=== PATIENT | female | born 1940 | race Caucasian/White ===

== ENCOUNTER 2017-03-28 18:23 | Emergency (ER) | payer MEDICARE, MEDICAID, SELFPAY | END 2017-03-28 21:47 | disposition home or self-care (01) | PROVIDERS: Emergency Provider Emergency Medicine; Family Provider Nurse Practitioner Family; Visit Provider Emergency Medicine | DX: K57.91 Diverticulosis of intestine, part unspecified, without perforation or abscess with bleeding (principal) | CPT/HCPCS: 74176; 80053; 81001; 82272; 85025; 87086; 87088; 87186; 99282; G0328 ==

== ENCOUNTER 2017-05-30 08:23 | Day surgery (SDC) | payer MEDICARE, MEDICAID, SELFPAY ==
[2017-05-30] VITALS (7 sets, daily range): BP systolic 95–142; BP diastolic 60–86; PULSE 71–88; RESP 18; TEMP 36.5–36.7; O2SAT 92–98; BMI 23.3
--- NOTE | 2017-05-30 09:49 | HMH.ANESCL ---
[facility] Anesthesia Checklist - Patient Identification Patient Identification: Arm Band, Family, Verbal (Name & ) - Structural Data Admitted From: Home Planned Operative Procedure/s: egd/colon Consent for Planned Operative Procedure(s) Verified: Yes Verified Documents: Surgical Consent - NPO Status Verified Time NPO: 00:00 - Additional verifications Patient : No Anesthesia Reactions: No Hx Blood Transfusions: No Cephalosporin Allergy: No Previous Colonoscopy: No - Cardiovascular Assessment Heart Sounds: S1 & S2 Pulse Strength: Baseline Pulse Rhythm: Regular Peripheral Edema: No - Airway Assessment C-Spine Mobility Assessed: Yes TMJ Mobility Assessed: Yes Dentition: Edentulous - Neurological Assessment Level of Consciousness: Awake, Alert, Appropriate Hx Seizures: No Numbness or tingling in extremities: No - Anesthesia Plan Anesthesia Risk discussed: Yes ASA Class: III Anesthesia Type: MAC [facility] Anesthesia HX I have reviewed the patient's past medical history: Yes Medical History: Reports:: Aneurysm (aortic), Hypertension Denies:: Diabetes Mellitus Type 1, Diabetes Mellitus Type 2, Internal Pacemaker, Seizures Other Surgeries: Yes: Other (lap choly). No: Pacemaker
--- NOTE | 2017-05-30 10:51 | HMH.PROC ---
[facility] Procedure Note Procedure Note:: Colonoscopy Procedure Report: Colonoscopy with cold snare, submucosal injection, snare cautery and Endo Clip placements Endoscopist: Kiet Prado II, MD Referring physician: Shahana DENISE Date of Procedure: May 30, 2017 Equipment: Olympus 180 variable stiffness pediatric colonoscope Sedation: MAC sedation Indication: Mrs. Wallace is a 76-year-old female who presented and March (March 28, 2017) to the [facility] emergency department with hematochezia/bright red rectal bleeding. At that time a CAT scan was performed and showed diverticulosis and a large hiatal hernia. Her hemoglobin and hematocrit were 15.4 and 46.2. The patient does report hard bowel movements with constipation. She reports no abdominal pain, weight loss or family history of colon cancer. Her last colonoscopy ([address] Gerard Pardo M.D.) revealed diverticulosis. Procedure: Prior to the procedure, a history and physical exam was performed, and patient's medications and allergies were reviewed. The risks, benefits and alternatives of the sedation and procedure were discussed with the patient. All questions were answered and informed consent was obtained. The patient was brought to the procedure room. Patient identification and proposed procedure were verified by the physician and the nurse. The patient was placed in a left lateral decubitus position and the scope was passed under direct vision. Throughout the procedure, the patient's blood pressure, pulse, and oxygen saturations were monitored continuously. The colonoscopy was accomplished without difficulty. The patient tolerated the procedure well. Findings: On digital rectal examination there was normal rectal tone. There were no external hemorrhoids. The colonoscope was introduced through the anal canal to the rectum and advanced to the cecum. The ileocecal valve and appendiceal orifice were identified. The scope was advanced a short distance into the ileum which appeared grossly normal. The scope was then withdrawn into the colon. There was a very large granular laterally spreading sessile advanced adenoma of the cecum (30-35 mm width polyp) that was injected with Eleview submucosally and then saline and this was removed in piecemeal via snare cautery. The post polypectomy site was clipped using 2 endoclips to close the site. There were 4 additional colon polyps identified in the descending and sigmoid. These ranged in size from 5-8 mm and were all removed via cold snare polypectomy. There were at least 2 or 3 additional polyps that were not removed because of retrieval of all the fragments of largest polyp specimen and a retrieval snare basket was used. There were scattered diverticuli throughout the descending and sigmoid colon (LEFT colon). The rectum itself was normal. Upon retroflexion within the rectum there were grade 2-3 internal hemorrhoids. Impression: 1. Large (30-35 mm) advanced adenoma (granular laterally spreading sessile) cecal polyp 2. 4 additional colonic polyps 3. Extensive left-sided diverticulosis 4. Grade 2-3 internal hemorrhoids Plan: I will follow up the polyp histology. Based upon the size and advanced nature of this polyp, the patient should return within 3-6 months to examine the site to ensure that there is no residual or recurrence. The patient does have some diminutive adenomas that will need to be removed. I would consider hemorrhoid band ligation at that time. I will discuss the findings with the patient and family.
--- NOTE | 2017-05-30 10:58 | P.PCN_ITS ---
[facility] Procedure Note Procedure Note:: Colonoscopy Procedure Report: Colonoscopy with cold snare, submucosal injection , snare cautery and Endo Clip placements Endoscopist: Kiet Prado II, MD Referring physician: Shahana DENISE Date of Procedure: May 30, 2017 Equipment: Olympus 180 variable stiffness pediatric colonoscope Sedation: MAC sedation Indication: Mrs. Wallace is a 76-year-old female who presented and March ( March 28, 2017) to the [facility] emergency department with hematochezia/bright red rectal bleeding. At that time a CAT scan was performed and showed diverticulosis and a large hiatal hernia. Her hemoglobin and hematocrit were 15.4 and 46.2. The patient does report hard bowel movements with constipation. She reports no abdominal pain, weight loss or family history of colon cancer. Her last colonoscopy ([address] Gerard Pardo M.D.) revealed diverticulosis. Procedure: Prior to the procedure, a history and physical exam was performed, and patient' s medications and allergies were reviewed. The risks, benefits and alternatives of the sedation and procedure were discussed with the patient. All questions were answered and informed consent was obtained. The patient was brought to the procedure room. Patient identification and proposed procedure were verified by the physician and the nurse. The patient was placed in a left lateral decubitus position and the scope was passed under direct vision. Throughout the procedure, the patient's blood pressure, pulse, and oxygen saturations were monitored continuously. The colonoscopy was accomplished without difficulty. The patient tolerated the procedure well. Findings: On digital rectal examination there was normal rectal tone. There were no external hemorrhoids. The colonoscope was introduced through the anal canal to the rectum and advanced to the cecum. The ileocecal valve and appendiceal orifice were identified. The scope was advanced a short distance into the ileum which appeared grossly normal. The scope was then withdrawn into the colon. There was a very large granular laterally spreading sessile advanced adenoma of the cecum (30-35 mm width polyp) that was injected with Eleview submucosally and then saline and this was removed in piecemeal via snare cautery. The post polypectomy site was clipped using 2 endoclips to close the site. There were 4 additional colon polyps identified in the descending and sigmoid. These ranged in size from 5-8 mm and were all removed via cold snare polypectomy. There were at least 2 or 3 additional polyps that were not removed because of retrieval of all the fragments of largest polyp specimen and a retrieval snare basket was used. There were scattered diverticuli throughout the descending and sigmoid colon (LEFT colon). The rectum itself was normal. Upon retroflexion within the rectum there were grade 2 -3 internal hemorrhoids. Impression: 1. Large (30-35 mm) advanced adenoma (granular laterally spreading sessile) cecal polyp 2. 4 additional colonic polyps 3. Extensive left-sided diverticulosis 4. Grade 2-3 internal hemorrhoids Plan: I will follow up the polyp histology. Based upon the size and advanced nature of this polyp, the patient should return within 3-6 months to examine the site to ensure that there is no residual or recurrence. The patient does have some diminutive adenomas that will need to be removed. I would consider hemorrhoid band ligation at that time. I will discuss the findings with the patient and family.
== END 2017-05-30 11:55 | disposition home or self-care (01) ==
LOC: OUTP 08:26
PROVIDERS: Family Provider Nurse Practitioner Family; PCP Family Medicine; Visit Provider Internal Medicine Gastroenterology
PROC: 0DJD8ZZ Inspection of Lower Intestinal Tract, Via Natural or Artificial Opening Endoscopic (ICD-10-PCS; CPT 45378; principal; 2017-05-30 10:00)
DX: D12.0 Benign neoplasm of cecum (principal); K63.5 Polyp of colon; K57.30 Diverticulosis of large intestine without perforation or abscess without bleeding; K64.1 Second degree hemorrhoids; K64.2 Third degree hemorrhoids
CPT/HCPCS: 45381; 45384; 88305

== ENCOUNTER 2018-02-01 16:34 | Inpatient (IN) ==
--- NOTE | 2018-02-01 18:50 | Emergency Department Note ---
ED Disposition Condition on Discharge: Fair - Critical Care Critical Care Time: No <Tl Saba - Last Filed: 02/01/18 20:20> Condition on Discharge: Fair (Stable) Time of Disposition: 09:50 - Critical Care Critical Care Time: No <Girma Granados III - Last Filed: 02/01/18 23:50> Clinical Impression: Rectal prolapse, Hypoxia, Elevated CPK, Elevated CK-MB level, Elevated d-dimer Acute bronchitis Qualifiers: Bronchitis organism: unspecified organism Qualified Code(s): J20.9 - Acute br onchitis, unspecified Pneumonia Qualifiers: Pneumonia type: due to unspecified organism Laterality: left Lung location: lower lobe of lung Qualified Code(s): J18.1 - Lobar pneumonia, unspecified organism Disposition: Admitted As Inpatient Attestation: On 02/01/18, the high probability of a clinically significant, sudden or life threatening deterioration of the following system(s) required my full and direct attention, intervention and personal management. The time I documented below is in addition to time spent performing reported procedures but includes the following listed in this critical care notation. Medical Decision Making - [place] Inquiry Pt receiving controlled substance: No <Tl Saba - Last Filed: 02/01/18 20:20> - Medical Records Medical records reviewed: Yes: I reviewed the patient's medical records. - [place] Inquiry Pt receiving controlled substance: No - Lab Data Lab results reviewed: Yes: I reviewed the patient's lab results. Result diagrams: 02/01/18 20:00 02/01/18 20:00 - Radiology Data #1 Image(s): Chest Image Reviewed: Yes I reviewed the patient's radiology image - CT Data CT Scan: Chest Time Received: 23:[address] Reviewed: Yes: I have viewed the radiologist's interpretation - ECG Data Tracing #1 I reviewed this ECG and interpreted as documented below: (EKG at 22:04 showed NSR, LAD, rate of 98 BPM.) <Girma Granados III - Last Filed: 02/01/18 23:50> Vital Signs: 02/01/18 16:36 02/01/18 17:13 02/01/18 19:30 Temperature 99.4 F Temperature Source Oral Pulse Rate Pulse Rate [Left Radial] 104 H 108 H 109 H Respiratory Rate 18 18 Blood Pressure [Right Arm] 138/69 120/62 123/76 Blood Pressure Mean [Right Arm] 92 81 91 Blood Pressure Source [Right Arm] Automatic Cuff Automatic Cuff Automatic Cuff Blood Pressure Position [Right Arm] Sitting Sitting Supine 02 Sat by Pulse Oximetry 94 L 93 L 92 L Oxygen Delivery Method Room Air Room Air Nasal Cannula Oxygen Flow Rate (LPM) 2 02/01/18 20:00 02/01/18 20:30 02/01/18 20:54 Temperature Temperature Source Pulse Rate 96 H Pulse Rate [Left Radial] 102 H 98 H Respiratory Rate 18 18 Blood Pressure [Right Arm] 131/75 129/74 Blood Pressure Mean [Right Arm] 93 92 Blood Pressure Source [Right Arm] Automatic Cuff Automatic Cuff Blood Pressure Position [Right Arm] Supine Supine 02 Sat by Pulse Oximetry 94 L 94 L Oxygen Delivery Method Nasal Cannula Nasal Cannula Oxygen Flow Rate (LPM) 2 2 02/01/18 21:31 02/01/18 22:00 02/01/18 22:14 Temperature Temperature Source Pulse Rate 92 H Pulse Rate [Left Radial] 84 100 H Respiratory Rate 18 18 Blood Pressure [Right Arm] 139/91 H 115/68 Blood Pressure Mean [Right Arm] 107 83 Blood Pressure Source [Right Arm] Automatic Cuff Automatic Cuff Blood Pressure Position [Right Arm] Supine Supine 02 Sat by Pulse Oximetry 93 L 93 L Oxygen Delivery Method Nasal Cannula Nasal Cannula Oxygen Flow Rate (LPM) 2 2 02/01/18 22:19 Temperature Temperature Source Pulse Rate Pulse Rate [Left Radial] Respiratory Rate Blood Pressure [Right Arm] Blood Pressure Mean [Right Arm] Blood Pressure Source [Right Arm] Blood Pressure Position [Right Arm] 02 Sat by Pulse Oximetry 84 L Oxygen Delivery Method Nasal Cannula Oxygen Flow Rate (LPM) 2 - Lab Data Lab Results 02/01/18 20:00: WBC 9.4, RBC 4.31, Hgb 12.8, Hct 40.3, MCV 93.5, MCH 29.7, MCHC 31.8, RDW 14.0, Plt Count 252, MPV 7.6, Neut % (Auto) 75.4, Lymph % (Auto) 15.0, [place] % (Auto) 7.9, Eos % (Auto) 1.3, Baso % (Auto) 0.3, Neut # (Auto) 7.1, Lymph # (Auto) 1.4, [place] # (Auto) 0.7, Eos # (Auto) 0.1, Baso # (Auto) 0.0 02/01/18 20:00: Sodium 140, Potassium 3.5, Chloride 103, Carbon Dioxide 27, Anion Gap 13.5, BUN 11, Creatinine 0.80, Estimated Creat Clear 49, Estimated GFR 69, Est GFR ( Amer) 84, Glucose 120 H, Calcium 8.4 L, Total Bilirubin 0.6, AST 50 H, ALT 29, Alkaline Phosphatase 87, Total Protein 7.0, Albumin 3.3 L , Globulin 3.7 H, Albumin/Globulin Ratio 0.9 L 02/01/18 20:00: Lactate 0.9 02/01/18 20:00: Total Creatine Kinase 2084 H*, CK-MB (CK-2) 21.7 H*, Troponin I < 0.02 02/01/18 20:00: D-Dimer 1500 H* 02/01/18 20:00: B-Natriuretic Peptide 60 Orders (Tests/Meds): ED MEDICATIONS Generic Name Dose Route Start Last Admin Trade Name Freq PRN Reason Stop Dose Admin Ceftriaxone Sodium 1 gm/ 50 mls @ 100 mls/hr 02/01/18 22:00 02/01/18 22:10 Sodium Chloride IV 02/15/18 21:59 100 mls/hr Q24H ISRRAEL Administration Protocol Sodium Chloride 1,000 mls @ 75 mls/hr 02/01/18 23:00 02/01/18 23:31 Sod Chlor 0.9% 1000ml Bag IV 03/03/18 22:59 75 mls/hr .[id number] ISRRAEL Administration Iopamidol 70 ml 02/01/18 23:33 02/01/18 23:35 [id number]; 75ml Vial IV 02/01/18 23:34 70 ml ONCE ONE Administration Protocol Sodium Chloride 3 ml 02/01/18 22:09 Sodium Chloride 3% 15ml Neb IH 03/03/18 22:08 ONCE PRN INDUCE SPUTUM COLLECTION Sodium Chloride 10 ml 02/01/18 22:49 Saline Flush 10ml Syringe IV 03/03/18 22:48 NEEDED PRN Maintain IV Site Sodium Chloride 40 ml 02/01/18 23:33 02/01/18 23:35 Rad-Ns 50ml Vial IV 02/01/18 23:34 40 ml ONCE ONE Administration Sodium Chloride 10 ml 02/01/18 23:33 02/01/18 23:35 Rad-Saline Flush 10ml Syringe IV 02/01/18 23:34 10 ml ONCE ONE Administration Discontinued Medications Generic Name Dose Route Start Last Admin Trade Name Freq PRN Reason Stop Dose Admin Albuterol/Ipratropium 3 ml 02/01/18 20:20 02/01/18 21:00 Duoneb 3ml Neb 02/01/18 20:21 3 ml ONCE ONE Administration Albuterol/Ipratropium 3 ml 02/01/18 21:53 02/01/18 22:13 Duoneb 3ml Neb 02/01/18 21:54 3 ml ONCE ONE Administration Methylprednisolone Sodium Succinate 125 mg 02/01/18 21:53 02/01/18 22:10 Solu-Medrol 125mg/2ml Vial IV 02/01/18 21:54 125 mg ONCE ONE Administration ORDERS Category Date Time Status XR chest portable Stat Exams 02/01/18 19:40 Taken Blood Culture Stat Micro 02/01/18 20:01 Ordered EKG Request [ECG Request by /Madeline] Stat Y 02/01/18 21:50 Ordered - Radiology Data #1 Pt rotated to left. Right lung rasheed appear clear. Hazy, ill defined left heart border and lower lung rasheed with mild increase in opacification probably due to pneumonia. (Tl Saba) Pt rotated to left. Right lung rasheed appear clear. Hazy, ill defined left heart border and lower lung rasheed with mild increase in opacification probably due to pneumonia. (Girma Granados III) - CT Data Findings Narrative: Impression: 1. No acute intrathoracic abnormality detected, specifically, no evidence of PE. 2. Sliding-type hiatal hernia. 3. Partially imaged lobulated 2.5 cm lesion in the right breast. Recommend correltation with recent mammography. If no recent breast imaging studies performed than an expeditious breast imaging workup is recommended to exclude malignancy (Tl Saba) Impression: 1. No acute intrathoracic abnormality detected, specifically, no evidence of PE. 2. Sliding-type hiatal hernia. 3. Partially imaged lobulated 2.5 cm lesion in the right breast. Recommend correltation with recent mammography. If no recent breast imaging studies performed than an expeditious breast imaging workup is recommended to exclude malignancy (Girma Granados III) Medical Decision Narrative: 8:00 PM: At shift change, I have discussed the patient with Dr. Granados, who will assume care of the patient at this time. I have discussed all clinical information including history, physical and diagnostic study results. Preliminary diagnoses based on information available at this point have been recorded by me. Controlled substance administration and critical care statement are also preliminary, as of the time of handoff. 21:35 Pt evaluated and cared for by Dr. Saba and transferred to de with labs and CXR pending. I have assessed pt and she appears stable without distress. CBC and CMP unremarkable. CXR has some haziness in left lower lung field area which may be pneumonia infiltrate. Pt was hypoxic in 80's initially. Pt 94% with 2 L/min O2 via NC. Pt does have some scattered rhonchi on auscultation. No wheezing or distress. O2 stopped. Will reassess SaO2. 22:[address] Corado (physician non invasive cardiologist NLD) at 21:49 and he has agreed to admit pt. Pt and niece aware and are in agreement. I did order the following: EKG, CPK, CKBM, troponin, BNP, d-dimer, Rocephin 1 gm IVPB and will include Zithromax 500 mg IVPB in admission orders. DuoNeb and SoluMedrol 125 mg IVP ordered. D-dimer was elevated and renal function good, so CTA chest to r/o PE ordered. CPK and CKMB elevated. Troponin normal. 1 L 0.9% NS at 80 cc/hr will be ordered. 23:37 CT chest report reviewed. EKG unremarkable. 2 troponins normal. Case discussed with Dr. Corado to up date him on additional workup. Pt and family aware of all results. Orders for admission will be written. (Tl Saba) 8:00 PM: At shift change, I have discussed the patient with Dr. Granados, who will assume care of the patient at this time. I have discussed all clinical information including history, physical and diagnostic study results. Preliminary diagnoses based on information available at this point have been recorded by me. Controlled substance administration and critical care statement are also preliminary, as of the time of handoff. 21:35 Pt evaluated and cared for by Dr. Saba and transferred to de with labs and CXR pending. I have assessed pt and she appears stable without distress. CBC and CMP unremarkable. CXR has some haziness in left lower lung field area which may be pneumonia infiltrate. Pt was hypoxic in 80's initially. Pt 94% with 2 L/min O2 via NC. Pt does have some scattered rhonchi on auscultation. No wheezing or distress. O2 stopped. Will reassess SaO2. 22:[address] Corado (physician non invasive cardiologist NLD) at 21:49 and he has agreed to admit pt. Pt and niece aware and are in agreement. I did order the following: EKG, CPK, CKBM, troponin, BNP, d-dimer, Rocephin 1 gm IVPB and will include Zithromax 500 mg IVPB in admission orders. DuoNeb and SoluMedrol 125 mg IVP ordered. D-dimer was elevated and renal function good, so CTA chest to r/o PE ordered. CPK and CKMB elevated. Troponin normal. 1 L 0.9% NS at 80 cc/hr will be ordered. 23:37 CT chest report reviewed. EKG unremarkable. 2 troponins normal. Case discussed with Dr. Corado to up date him on additional workup. Pt and family aware of all results. Orders for admission will be written. (Girma Granados III) General Adult HPI - General Mode of Arrival: EMS Limitations: No Limitations Description of Symptoms (Recalled from ER Triage Doc. by RN): Family noticed when she took her clothes off earlier to go to the bathroom she had a prolapsed colon. States she had pylops removed here last week. <Tl Saba - Last Filed: 02/01/18 20:20> <Girma Granados III - Last Filed: 02/01/18 23:50> - General Chief complaint: PAIN Stated complaint: Prolapse colon Time Seen by Provider: 02/01/18 19:40 - History of Present Illness HPI narrative: History obtained from patient and niece. Brought in by ambulance. Patient is wheelchair-bound. Pillowcase Cutter noticed a prolapsed rectum today. She had been incontinent of stool and had some blood. As far as the niece knows, she has never had this before. She also has had recent diagnosis of bronchitis on Tuesday. Has had a recent cough without fever or chest pain. Got started on Levaquin by her primary care provider on Tuesday. Continues to complain of cough and trouble breathing. No history of COPD. Non-smoker. She is not on oxygen or breathing treatments at home. The patient was placed on oxygen by EMS prior to arrival. When I arrive in the room she is no longer on oxygen and pulse ox is in the upper 80s. (Tl Saba) History obtained from patient and niece. Brought in by ambulance. Patient is wheelchair-bound. Pillowcase Cutter noticed a prolapsed rectum today. She had been incontinent of stool and had some blood. As far as the niece knows, she has never had this before. She also has had recent diagnosis of bronchitis on Tuesday. Has had a recent cough without fever or chest pain. Got started on Levaquin by her primary care provider on Tuesday. Continues to complain of cough and trouble breathing. No history of COPD. Non-smoker. She is not on oxygen or breathing treatments at home. The patient was placed on oxygen by EMS prior to arrival. When I arrive in the room she is no longer on oxygen and pulse ox is in the upper 80s. (Girma Granados III) - Related Data Home Medications Medication Instructions Recorded Confirmed NIFEdipine [Nifedipine ER] 30 mg PO DAILY 05/30/17 02/01/18 Oxybutynin Chloride [Ditropan 5mg 5 mg PO HS 05/30/17 02/01/18 tablet] Simvastatin [Zocor] 20 mg PO HS 05/30/17 02/01/18 levoFLOXacin [Levaquin 500mg 500 mg PO DAILY 02/01/18 02/01/18 tab] Allergies Allergy/AdvReac Type Severity Reaction Status Date / Time Penicillins Allergy Intermediate swelling Verified 08/22/17 09:12 [facility] History I have reviewed the patient's past medical history: Yes Medical History: Reports:: Aneurysm (aortic), Hypertension Denies:: Diabetes Mellitus Type 1, Diabetes Mellitus Type 2, Internal Pacemaker, Lung Disease, Seizures Other Medical History: Denies: Blood Transfusion Reaction Other Surgeries: Yes: Other (lap choly). No: Pacemaker Amputation: No Fractures: No - Social History Alcohol Intake: never - Psychiatric History Expresses thoughts of harming self/others: None Suicide Plan Description: No Plan Family Hx:: Unable to obtain <Tl Saba - Last Filed: 02/01/18 20:20> ROS Obtained: Yes All systems reviewed & no additional complaints - Constitutional Constitutional: Denies fever(s) - Cardiovascular Cardiovascular: Denies chest pain - Respiratory Respiratory: Yes cough, Yes dyspnea - Gastrointestinal Gastrointestingal: Reports: as per HPI. Denies: abdominal pain, vomiting <Tl Saba - Last Filed: 02/01/18 20:20> Physical Exam - General General appearance: alert, in no apparent distress - Head Head exam: atraumatic, normocephalic - Eye Eye exam: Present: normal appearance - ENT ENT exam: Present: mucous membranes moist - Neck Neck exam: Present: normal inspection - Chest Chest inspection: Present: normal inspection, symmetric chest wall rise - Respiratory Respiratory exam: Present: other (Rhonchi, frequent cough). Absent: respiratory distress - Cardiovascular Cardiovascular exam: Present: regular rate, normal rhythm - Abdominal Exam Abdominal exam: Present: soft. Absent: distention, tenderness - Extremities Exam Extremities exam: Present: normal inspection - Neurological Exam Neurological exam: Present: alert - Psychiatric Psychiatric exam: Present: normal affect - Skin Skin exam: Present: warm, dry <Tl Saba - Last Filed: 02/01/18 20:20> <Girma Granados III - Last Filed: 02/01/18 23:50> - Rectal Exam comment: Rectal prolapse, easily reduced (Tl Saba) Rectal prolapse, easily reduced (Girma Granados III)
[2018-02-01 20:20] LABS: Basophils % 0.3 % (0.1-2.0); Eosinophils # 0.1 K/mm3 (0.0-0.4); Eosinophils % 1.3 % (0.1-12.0); Hematocrit 40.3 % (37.0-47.0); Hemoglobin 12.8 g/dL (12.2-16.2); Lymphocytes # 1.4 K/mm3 (0.7-4.5); Mean Corpuscular HGB Conc 31.8 g/dL (31.8-35.4); Mean Corpuscular Hemoglobin 29.7 pg (27.0-31.2); Mean Corpuscular Volume 93.5 fl (81-99); Mean Platelet Volume 7.6 fl (7.4-10.4); Monocytes # 0.7 K/mm3 (0.1-1.0); Monocytes % 7.9 % (1.7-9.3); Neutrophils # 7.1 K/mm3 (1.8-7.8); Neutrophils % 75.4 % (37.0-80.0); Platelet Count 252 K/mm3 (142-424); Red Blood Count 4.31 M/mm3 (4.20-5.40); White Blood Count 9.4 K/mm3 (4.8-10.8)
[2018-02-01 20:36] LABS: Albumin Level 3.3 gm/dL (3.4-5.0); Albumin/Globulin Ratio 0.9 (1.1-1.8); Anion Gap 13.5 mEq/L (5-15); Bilirubin,Total 0.6 mg/dL (0.2-1.0); Calcium 8.4 mg/dL (8.5-10.1); Globulin 3.7 gm/dl (1.3-3.2); Potassium 3.5 mmoL/L (3.5-5.1)
[2018-02-01 22:21] LABS: Creatine Kinase 2084 U/L (26-192)
--- NOTE | 2018-02-02 07:29 | Pharmacy Consult Notes ---
[facility] Pharmacy VTE Monitoring - Patient Demographics Admission date: 02/01/18 Report Date: 02/02/18 Time: 07:29 Allergies/Adverse Reactions: Patient Allergies Penicillins Allergy (Intermediate, Verified 08/22/17 09:12) swelling Height: 1.63 m Weight: 76.7 kg Patient Problems: Current Active Problems Rectal prolapse (Acute) Hypoxia (Acute) Acute bronchitis (Acute) Pneumonia (Acute) Elevated CPK (Acute) Elevated CK-MB level (Acute) Elevated d-dimer (Acute) - VTE Risk Labs: VTE Related Lab Results Hgb 12.8 g/dL (12.2-16.2) 02/01/18 20:00 Hct 40.3 % (37.0-47.0) 02/01/18 20:00 Plt Count 252 K/mm3 (142-424) 02/01/18 20:00 BUN 11 mg/dL (7-18) 02/01/18 20:00 Creatinine 0.80 mg/dL (0.55-1.02) 02/01/18 20:00 Estimated Creat Clear 49 mL/min (0-300) 02/01/18 20:00 VTE Risk Level: Low Risk - Prophylaxis VTE Prophylaxis Ordered?: Yes Types of VTE Prophylaxis: TEDS Knee High Location of Applied Device: Bilateral Lower Extremeties - VTE Diagnosis Confirmed Treatment or plan recommended: Continue Current Treatment
--- NOTE | 2018-02-02 08:50 | History & Physical Report ---
*Admission Date: 02/01/18 *Chief complaint: Cough and congestion *History of present illness: 77-year-old white female with significant communication deficits who apparently is wheelchair-bound and lives alone in her home in [place], [place]. She intermittently sees a nurse practitioner service in [place], and apparently was seen there late last week and diagnosed with a bronchopneumonia and placed on levofloxacin. This apparently has not improved her situation and she is continued to cough and have diminished p.o. intake. Some type of "manager fitness" who may or may not live in the house noticed that she had a rectal prolapse and she was brought to the emergency department late yesterday evening. Was noted to have shortness of air, high d-dimer testing and this prompted a chest x-ray and CTA of the chest which revealed infiltrate but no evidence of pulmonary embolism or chest mass. Rectal prolapse was noted according to the ER examination. She was admitted to hospital for IV antibiotics and potential surgical consultation for the rectal prolapse. [facility] History Medical History: Reports:: Aneurysm (aortic), Hypertension Denies:: Cancer, Diabetes Mellitus Type 1, Diabetes Mellitus Type 2, Internal Pacemaker, Lung Disease, Seizures Other Medical History: Reports: Arthritis (Osteoarthritis apparently causing patient's wheelchair-bound status). Denies: Blood Transfusion Reaction Other Surgeries: Yes: Cholecystectomy, Colonoscopy, Other (lap clint). No: Pacemaker Amputation: No Fractures: No - *Social History Alcohol Intake: never Occupational Status: retired Housing: house Household Members: family - Psychiatric History Expresses thoughts of harming self/others: None Suicide Plan Description: No Plan *Family Hx:: Cancer, Stroke Review of Systems - Review of Systems Patient has an impediment which limits my ability to understand her communication. She currently however is able to deny pain or shortness of air. Reports chronic leg weakness and dysfunction. Does acknowledge she is in a wheelchair most of the time. Notes that she feels no pain in her rectum this morning. Notes no bleeding. Admits to cough, denies sputum production. Denies cardiac symptoms of chest pain or nausea. Denies recent vomiting or diarrhea. Meds Home Medications Medication Instructions Recorded Confirmed Type NIFEdipine [Nifedipine ER] 30 mg PO DAILY 05/30/17 02/02/18 History Oxybutynin Chloride [Ditropan 5mg 5 mg PO HS 05/30/17 02/02/18 History tablet] Simvastatin [Zocor] 20 mg PO HS 05/30/17 02/02/18 History levoFLOXacin [Levaquin 500mg 500 mg PO DAILY 02/01/18 02/02/18 History tab] Albuterol Sulfate [Albuterol HFA 1 - 2 puffs INHALATION Q4-6H PRN 02/02/18 02/02/18 History Inhaler] Allergies Allergy/AdvReac Type Severity Reaction Status Date / Time Penicillins Allergy Intermediate swelling Verified 08/22/17 09:12 Exam Vital signs and Labs for Last 24 Hours: Temp Pulse Resp BP Pulse Ox 97.8 F 64 20 95/49 L 94 L 02/02/18 08:00 02/02/18 08:00 02/02/18 08:00 02/02/18 08:00 02/02/18 08:00 Laboratory Results - last 24 hr 02/01/18 20:00: WBC 9.4, RBC 4.31, Hgb 12.8, Hct 40.3, MCV 93.5, MCH 29.7, MCHC 31.8, RDW 14.0, Plt Count 252, MPV 7.6, Neut % (Auto) 75.4, Lymph % (Auto) 15.0, [place] % (Auto) 7.9, Eos % (Auto) 1.3, Baso % (Auto) 0.3, Neut # (Auto) 7.1, Lymph # (Auto) 1.4, [place] # (Auto) 0.7, Eos # (Auto) 0.1, Baso # (Auto) 0.0 02/01/18 20:00: Sodium 140, Potassium 3.5, Chloride 103, Carbon Dioxide 27, Anion Gap 13.5, BUN 11, Creatinine 0.80, Estimated Creat Clear 49, Estimated GFR 69, Est GFR ( Amer) 84, Glucose 120 H, Calcium 8.4 L, Total Bilirubin 0.6, AST 50 H, ALT 29, Alkaline Phosphatase 87, Total Protein 7.0, Albumin 3.3 L , Globulin 3.7 H, Albumin/Globulin Ratio 0.9 L 02/01/18 20:00: Lactate 0.9 02/01/18 20:00: Total Creatine Kinase 2084 H*, CK-MB (CK-2) 21.7 H*, Troponin I < 0.02 02/01/18 20:00: D-Dimer 1500 H* 02/01/18 20:00: B-Natriuretic Peptide 60 02/01/18 22:20: Troponin I < 0.02 I & O for Last 24 hours: Intake & Output 01/30/18 01/31/18 02/01/18 02/02/18 11:59 11:59 11:59 11:59 Intake Total 513 / 513 Balance 513 / 513 Weight 169 lb 1.513 oz Microbiology Reports for the Last 24 Hours: Microbiology 02/01/18 22:50 Sputum - Expectorated Sputum Gram Stain - Final Narrative: Patient examined in hospital bed. Oropharynx dry but clear. She has no JVD. She has garbled speech-this appears to baseline. Has significant osteoarthritic swelling of ankles and knees, but she is able to move them with fairly preserved range of motion. Muscle tone is diminished in the calves but preserved in the thighs. Lungs have rhonchi, especially in the left midlung field. Right side is clear. Heart rate regular. No murmurs auscultated but lung exam makes this difficult. Abdomen soft and nontender. Rectal exam shows no prolapse but her rectal orifice is slightly dilated consistent with a resolved prolapse versus stool impaction. No skin rash visible today. Assessment and Plan (1) Rectal prolapse Current visit: Yes Status: Resolved Category: Medical Code(s): K62.3 - Rectal prolapse Seems to have resolved. Probably due to chronic constipation-start MiraLAX. No indication for surgical consultation at this point. (2) Acute bronchitis Current visit: Yes Status: Acute Qualifiers: Bronchitis organism: unspecified organism Qualified Code(s): J20.9 - Acute bronchitis, unspecified Category: Medical Code(s): J20.9 - Acute bronchitis, unspecified Failed outpatient therapy. IV antibiotics. Short-term hospital stay. Assess oxygen needs on discharge. (3) Elevated CPK Current visit: Yes Status: Acute Category: Medical Code(s): R74.8 - Abnormal levels of other serum enzymes Questionable history-possible falls, possible immobility issues renal function is normal. No evidence of bone elevation. Check this again tomorrow. (4) Wheelchair confinement status Current visit: Yes Status: Acute Category: Medical Code(s): Z99.3 - Dependence on wheelchair Unsure about patient's services at home. She seems to be a good candidate for home health for safety evaluation. We will investigate this.
[2018-02-02 14:02] LABS: Microscopic, Urine URINE MICROSCOPIC (MICROSCOPIC)
[2018-02-02 14:09] LABS: Appearance,Urine CLEAR (Clear); Bilirubin,Urine Negative (Negative); Blood, Urine Negative (Negative); Color,Urine YELLOW (Yellow); Glucose,Urine (UA) Negative (Negative); Ketones,Urine Negative (Negative); Leukocyte Esterase,Urine TRACE (Negative); Protein,Urine 2+ (Negative); Specific Gravity, Urine 1.025 (1.005-1.030)
[2018-02-02 14:16] LABS: Bacteria,Urine 2+ /lpf; Mucus,Urine 3+ /lpf
[2018-02-02 14:29] LABS: Albumin Level 3.1 gm/dL (3.4-5.0); Albumin/Globulin Ratio 0.8 (1.1-1.8); Anion Gap 16.5 mEq/L (5-15); Bilirubin,Total 0.4 mg/dL (0.2-1.0); Calcium 8.5 mg/dL (8.5-10.1); Globulin 3.7 gm/dl (1.3-3.2); Potassium 3.5 mmoL/L (3.5-5.1); Total Protein,Serum 6.8 gm/dL (6.4-8.2)
[2018-02-03 06:58] LABS: Eosinophils # 0.1 K/mm3 (0.0-0.4); Eosinophils % 0.4 % (0.1-12.0); Hematocrit 37.7 % (37.0-47.0); Lymphocytes # 0.8 K/mm3 (0.7-4.5); Lymphocytes % 4.1 K/mm3 (10-50); Mean Corpuscular HGB Conc 31.8 g/dL (31.8-35.4); Mean Corpuscular Hemoglobin 30.2 pg (27.0-31.2); Mean Corpuscular Volume 94.9 fl (81-99); Mean Platelet Volume 8.1 fl (7.4-10.4); Monocytes # 0.5 K/mm3 (0.1-1.0); Monocytes % 2.6 % (1.7-9.3); Neutrophils # 16.9 K/mm3 (1.8-7.8); Neutrophils % 92.8 % (37.0-80.0); Platelet Count 238 K/mm3 (142-424); Red Blood Count 3.97 M/mm3 (4.20-5.40); Red Cell Distribution Width 14.1 % (11.5-17.5); White Blood Count 18.2 K/mm3 (4.8-10.8)
[2018-02-03 07:38] LABS: Albumin Level 2.8 gm/dL (3.4-5.0); Albumin/Globulin Ratio 0.8 (1.1-1.8); Anion Gap 13.1 mEq/L (5-15); Bilirubin,Total 0.2 mg/dL (0.2-1.0); Calcium 8.3 mg/dL (8.5-10.1); Globulin 3.4 gm/dl (1.3-3.2); Potassium 4.1 mmoL/L (3.5-5.1); Total Protein,Serum 6.2 gm/dL (6.4-8.2)
[2018-02-03 08:43] LABS: Lymphocytes % 3 % (10-50); Monocytes % 3 % (2-9); Neutrophils % 92 % (42-76); Total Cells Counted 100
--- NOTE | 2018-02-03 12:37 | Discharge Summary ---
General - General Admission date:: 02/02/18 Discharge date: 02/03/18 HPI HPI: 77-year-old white female with significant communication deficits who apparently is wheelchair-bound and lives alone in her home in [place], [place]. She intermittently sees a nurse practitioner service in [place], and apparently was seen there late last week and diagnosed with a bronchopneumonia and placed on levofloxacin. This apparently has not improved her situation and she is continued to cough and have diminished p.o. intake. 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 Was noted to have shortness of air, high d-dimer testing and this prompted a chest x-ray and CTA of the chest which revealed infiltrate but no evidence of pulmonary embolism or chest mass. Rectal prolapse was noted according to the ER examination. She was admitted to hospital for IV antibiotics and potential surgical consultation for the rectal prolapse. Hospital Course Hospital Course: Patient was admitted to medical service for management. Initiated on IV antibiotics and IV fluids. Noted to have quite elevated CPK. This was monitored and improved with hydration. Suspected to be due to inactivity and falls. Patient had significant clinical improvement. Tolerating p.o. intake. Transition to oral antibiotics prior to discharge home. Stable on room air. Remained hemodynamically stable during admission. Patient had no further episodes of rectal prolapse. No surgical consult was placed. Addressed rectal prolapse with aggressive bowel regimen. Objective Vital signs: Temp Pulse Resp BP Pulse Ox 98.3 F 88 20 101/70 L 95 02/03/18 08:00 02/03/18 08:00 02/03/18 08:00 02/03/18 08:00 02/03/18 09:35 - *Routine HEENT Exam Head: Present: normocephalic, atraumatic Eye: Present: EOMI, PERRL ENT: Absent: dentition normal (Absent) - *Routine Neck Exam Present: supple. Absent: JVD - *Routine Respiratory Exam Present: CTA bilaterally. Absent: prolonged expiratory phase, wheezes, crackles - *Routine Cardiovascular Exam Present: RRR, Normal S1. Absent: murmur - *Routine Abdominal Exam Present: soft, normoactive bowel sounds. Absent: tenderness - *Routine Rectal Exam Patient deferred: visual exam - *Routine Exam Patient deferred: external exam - *Routine Extremities Exam Absent: cyanosis, clubbing Comments: Muscle wasting in bilateral lower extremities - *Routine Skin Exam Present: intact. Absent: cyanosis, erythema - *Routine Neurological Exam Present: alert. Absent: normal speech Results Labs on day of discharge: Labs from last 24 hours 02/03/18 02/03/18 02/02/18 06:40 06:40 14:00 WBC 18.2 H D RBC 3.97 L Hgb 12.0 L Hct 37.7 MCV 94.9 MCH 30.2 MCHC 31.8 RDW 14.1 Plt Count 238 MPV 8.1 Neut % (Auto) 92.8 H Lymph % (Auto) 4.1 L [place] % (Auto) 2.6 Eos % (Auto) 0.4 Baso % (Auto) 0.0 L Neut # (Auto) 16.9 H Lymph # (Auto) 0.8 [place] # (Auto) 0.5 Eos # (Auto) 0.1 Baso # (Auto) 0.0 Total Counted 100 Neutrophils % (Manual) 92 H Band Neutrophils % 2.0 Lymphocytes % (Manual) 3 L Monocytes % (Manual) 3 Platelet Estimate Normal Sodium 142 139 Potassium 4.1 3.5 Chloride 108 H 102 Carbon Dioxide 25 24 Anion Gap 13.1 16.5 H BUN 22 H 21 H D Creatinine 0.76 D 1.22 H D Estimated Creat Clear 55 45 Estimated GFR 73 43 L Est GFR ( Amer) 89 D 51 L D Glucose 154 H D 293 H D Hemoglobin A1c Calcium 8.3 L 8.5 Total Bilirubin 0.2 0.4 AST 44 H 54 H ALT 33 32 Alkaline Phosphatase 74 82 Total Creatine Kinase 1197 H* D 1897 H* Total Protein 6.2 L 6.8 Albumin 2.8 L 3.1 L Globulin 3.4 H 3.7 H Albumin/Globulin Ratio 0.8 L 0.8 L Urine Color Urine Appearance Urine pH Ur Specific Ada Urine Protein Urine Glucose (UA) Urine Ketones Urine Blood Urine Nitrate Urine Bilirubin Urine Urobilinogen Ur Leukocyte Esterase Urine WBC Ur Squamous Epith Cells Urine Bacteria Urine Mucus 02/02/18 02/01/18 13:50 20:00 WBC RBC Hgb Hct MCV MCH MCHC RDW Plt Count MPV Neut % (Auto) Lymph % (Auto) [place] % (Auto) Eos % (Auto) Baso % (Auto) Neut # (Auto) Lymph # (Auto) [place] # (Auto) Eos # (Auto) Baso # (Auto) Total Counted Neutrophils % (Manual) Band Neutrophils % Lymphocytes % (Manual) Monocytes % (Manual) Platelet Estimate Sodium Potassium Chloride Carbon Dioxide Anion Gap BUN Creatinine Estimated Creat Clear Estimated GFR Est GFR ( Amer) Glucose Hemoglobin A1c 5.9 Calcium Total Bilirubin AST ALT Alkaline Phosphatase Total Creatine Kinase Total Protein Albumin Globulin Albumin/Globulin Ratio Urine Color Yellow Urine Appearance Clear Urine pH 6.0 Ur Specific Ada 1.025 Urine Protein 2+ Urine Glucose (UA) Negative Urine Ketones Negative Urine Blood Negative Urine Nitrate Positive Urine Bilirubin Negative Urine Urobilinogen 1.0 Ur Leukocyte Esterase Trace Urine WBC 5-10 Ur Squamous Epith Cells 3-5 Urine Bacteria 2+ Urine Mucus 3+ DS: Diagnosis - Discharge Diagnosis (1) Rectal prolapse Status: Resolved (2) Acute bronchitis Status: Acute (3) Elevated CPK Status: Acute (4) Wheelchair confinement status Status: Acute Discharge Plan - Patient Discharge Instructions Patient Instructions: Pneumonia-Adult, Acute Bronchitis, Rectal Prolapse, DI for Hypoxia - Follow up Plan Follow up with: Rolly Oneill MD [Staff Physician] - 1 week Disposition: Home, Self-Assisted Medications: Home Medications Medication Instructions Recorded Confirmed Type NIFEdipine [Nifedipine ER] 30 mg PO DAILY 05/30/17 02/02/18 History Oxybutynin Chloride [Ditropan 5mg 5 mg PO HS 05/30/17 02/02/18 History tablet] Simvastatin [Zocor] 20 mg PO HS 05/30/17 02/02/18 History Albuterol Sulfate [Albuterol HFA 1 - 2 puffs INHALATION Q4-6H PRN 02/02/18 02/02/18 History Inhaler] Prescriptions/Medication Reconciliation: Continue Oxybutynin Chloride [Ditropan 5mg tablet] 5 mg PO HS Albuterol Sulfate [Albuterol HFA Inhaler] 1 - 2 puffs INHALATION Q4-6H PRN PRN Reason: Shortness Of Breath Simvastatin [Zocor] 20 mg PO HS NIFEdipine [Nifedipine ER] 30 mg PO DAILY Discontinued levoFLOXacin [Levaquin 500mg tab] 500 mg PO DAILY
== END 2018-02-03 18:43 | disposition home or self-care (01) ==
LOC: ICU 16:34 → ER 16:34 → OBSVTOIN 02-02 00:15 → ICU 02-02 00:17 → 2ND 02-02 10:38
PROVIDERS: ADMIT Internal Medicine Adolescent Medicine; ATTEND Internal Medicine Adolescent Medicine
CPT/HCPCS: 36415; 71010; 71045; 71275; 80053; 81001; 82550; 82553; 83036; 83605; 83880; 84484; 85007; 85025; 85378; 87040; 87070; 87086; 87205; 93005; 94640; 94760; 94761; 96365; 96367; 96375; 97110; 97162; 97165; 97530; 97535; 99285; J0456; Q9967

== ENCOUNTER → 2019-06-19 09:20 | Outpatient (CLI) | payer MEDICARE, SELFPAY ==
[2019-06-19 09:27] LABS: Microscopic, Urine URINE MICROSCOPIC (MICROSCOPIC)
[2019-06-19 13:44] LABS: Appearance,Urine CLEAR (Clear); Bilirubin,Urine Negative (Negative); Blood, Urine Negative (Negative); Color,Urine YELLOW (Yellow); Glucose,Urine (UA) Negative (Negative); Ketones,Urine Negative (Negative); Leukocyte Esterase,Urine 3+ (Negative); Nitrate,Urine POSITIVE (Negative); PH,Urine 6.5 (5.0-8.5); Protein,Urine Negative (Negative); Urobilinogen,Urine 0.2 EU/dl (0.2)
[2019-06-19 13:56] LABS: Bacteria,Urine 4+ /lpf; WBC,Urine TNTC #/hpf (0-3)
== END ==
PROVIDERS: Visit Provider Internal Medicine Adolescent Medicine
DX: N39.0 Urinary tract infection, site not specified (principal)
CPT/HCPCS: 81001; 87086; 87088; 87186

== ENCOUNTER → 2019-12-10 09:54 | Outpatient (POV) | payer MEDICARE, SELFPAY | PROVIDERS: Visit Provider Nurse Practitioner Family | DX: Z00.00 Encounter for general adult medical examination without abnormal findings (principal) ==

== ENCOUNTER → 2020-01-02 10:48 | Outpatient (CLI) | payer MEDICARE, MEDICAID, SELFPAY ==
[2020-01-02 11:27] LABS: Basophils % 0.4 % (0.1-2.0); Eosinophils # 0.5 K/mm3 (0.0-0.4); Eosinophils % 6.6 % (0.1-12.0); Hematocrit 42.3 % (37.0-47.0); Hemoglobin 13.5 g/dL (12.2-16.2); Lymphocytes # 2.3 K/mm3 (0.7-4.5); Lymphocytes % 30.5 % (10-50); Mean Corpuscular HGB Conc 31.9 g/dL (31.8-35.4); Mean Corpuscular Hemoglobin 30.6 pg (27.0-31.2); Mean Platelet Volume 8.2 fl (7.4-10.4); Monocytes # 0.5 K/mm3 (0.1-1.0); Monocytes % 7.3 % (1.7-9.3); Neutrophils # 4.1 K/mm3 (1.8-7.8); Neutrophils % 55.2 % (37.0-80.0); Platelet Count 235 K/mm3 (142-424); Red Blood Count 4.41 M/mm3 (4.20-5.40); Red Cell Distribution Width 14.7 % (11.5-17.5); White Blood Count 7.4 K/mm3 (4.8-10.8)
[2020-01-02 11:34] LABS: Chloride 108 mmol/L (98-107); Potassium 3.5 mmoL/L (3.5-5.1); Sodium 143 mmol/L (136-145)
[2020-01-02 11:36] LABS: Alanine Aminotransferase 12 U/L (12-78); Alkaline Phosphatase 76 U/L (38-126); Anion Gap 10.5 mEq/L (5-15); Aspartate Amino Transferase 19 U/L (14-36); Bilirubin,Total 0.4 mg/dl (0.2-1.3); Blood Urea Nitrogen 13 mg/dl (7-17); Carbon Dioxide 28 mmol/L (22.0-30.0); Estimated Glomerular Filt Rate 80 ml/min (>60); GFR (African American) 97 ML/MIN (>60)
--- NOTE | 2020-01-02 11:36 | CT_ITS ---
PROCEDURE: CT ABDOMEN PELVIS WO/W CON CLINICAL INDICATION: BREAST MASS, RIGHT breast mass r/o mets COMPARISON: CT ABDPELW/O CT ABD PELVIS W/O CONTRAST from 03/28/2017 TECHNIQUE: IV Contrast: 75ML OPTIRAY 350 Oral Contrast None Axial images obtained with sagittal and coronal reformats. All CT scans at the facility use one or more dose reduction, viz: automated exposure control, ma/kV adjustment per patient size (including targeted exams where dose is matched to indication, i.e. head), or iterative reconstruction technique. FINDINGS: The liver, spleen, adrenal glands, pancreas, and kidneys have an unremarkable unenhanced appearance. There is pancreatic atrophy. No intestinal obstruction or free air. There is colonic diverticulosis. No evidence of diverticulitis. The cecum is located in the left mid abdominal region. No evidence of appendicitis. The appendix is not clearly identified. There has been a prior cholecystectomy. There are degenerative changes in the lumbar spine with mild retrolisthesis of L3 and L4 of 3-4 mm. No bony destructive process evident. There is generalized osteopenia IMPRESSION: No acute abdominal or pelvic findings. No convincing evidence of abdominal metastasis. Dictated by: Sameer Howe MD 01/03/2020 10:23 Sameer Howe MD in [facility] 01/03/2020 10:23
--- NOTE | 2020-01-02 11:36 | CT_ITS ---
PROCEDURE: CT CHEST WO/W CON CLINCAL INDICATION: BREAST MASS,RIGHT breast mass r/o mets, evaluate for possible metastasis COMPARISON: No exams were available for comparison TECHNIQUE: IV Contrast: 75ml Optiray 350 Axial images obtained with sagittal and coronal reformats. All CT scans at the facility use one or more dose reduction, viz: automated exposure control, ma/kV adjustment per patient size (including targeted exams where dose is matched to indication, i.e. head), or iterative reconstruction technique. FINDINGS: HEART AND MEDIASTINAL STRUCTURES: There is mild dilatation of the ascending thoracic aorta measuring up to 4.6 cm in AP dimension. No evidence of dissection. There is no evidence of pulmonary embolus. There is mild prominence of the right main pulmonary artery at 2.9 cm with the maximum diameter of the left main pulmonary artery at 2.1 cm. Coronary artery calcifications are present. There is a medium-sized hiatal hernia. LUNGS AND PLEURAL SPACES: A calcified granuloma is present in the left lower lobe. No suspicious pulmonary nodules are identified. No effusions or infiltrates. BONY STRUCTURES: There are prominent hypertrophic changes of the sternoclavicular joints on both sides. UPPER ABDOMEN: Unremarkable. ADDITIONAL FINDINGS: There is a 3.5 x 3.1 cm soft tissue mass in the the retroareolar region of the right breast suspicious for neoplasm. There is some retraction of the breast tissue at this area. There may be some minimal extension to the lateral aspect of the pectoralis major muscle inferiorly along the medial aspect of the mass. The mass does extend peer to extend to the cutaneous region. No bony involvement evident. IMPRESSION: 1. 3.5 cm right breast mass suspicious for neoplasm which may extend to the lateral and inferior aspect of the pectoralis major muscle but not involving the underlying ribs. 2. No evidence of pulmonary metastasis. 3. Fusiform aneurysmal dilatation of the ascending aorta at 4.6 cm. 4. Mild fusiform dilatation of the right main pulmonary artery Dictated by: Sameer Howe MD 01/04/2020 12:43 Sameer Howe MD in [facility] 01/04/2020 12:43
--- NOTE | 2020-01-02 11:36 | CT_ITS ---
PROCEDURE: CT HEAD/BRAIN WO/W CON CLINICAL INDICATION: BREST MASS RIGHT Evaluate for metastatic disease, large right breast mass COMPARISON: No exams were available for comparison TECHNIQUE: IV Contrast: 100ML OPITRAY 320 Axial images obtained without and with contrast enhancement.. All CT scans at the facility use one or more dose reduction, viz: automated exposure control, ma/kV adjustment per patient size (including targeted exams where dose is matched to indication, i.e. head), or iterative reconstruction technique. FINDINGS: No midline shift, mass effect, intracranial hemorrhage, hydrocephalus, or extra-axial fluid collection is evident. There is generalized atrophy with hypoattenuation of the periventricular white matter consistent with microangiopathic changes.. No enhancing lesions are evident. The calvarium has an unremarkable appearance. No mastoid effusion. There is mild mucosal thickening of the maxillary sinuses on both sides. IMPRESSION: 1. No acute intracranial findings. 2. No convincing evidence of metastatic disease. Dictated by: Sameer Howe MD 01/02/2020 18:04 Sameer Howe MD in [facility] 01/02/2020 18:04
[2020-01-02 11:37] LABS: Albumin Level 3.9 g/dl (3.5-5.0); Albumin/Globulin Ratio 1.5 (1.1-1.8); Calcium 9.3 mg/dl (8.4-10.2); Globulin 2.6 g/dL (1.3-3.2); Glucose 102 mg/dl (74-100); Total Protein,Serum 6.5 g/dl (6.3-8.2)
== END ==
PROVIDERS: PCP Internal Medicine Adolescent Medicine; Visit Provider Internal Medicine Adolescent Medicine
DX: N63.10 Unspecified lump in the right breast, unspecified quadrant (principal); Z03.89 Encounter for observation for other suspected diseases and conditions ruled out; I10 Essential (primary) hypertension
CPT/HCPCS: 36415; 70470; 71270; 74178; 80053; 85025; Q9967

== ENCOUNTER → 2020-01-23 10:28 | Outpatient (CLI) | payer MEDICARE, MEDICAID, SELFPAY ==
--- NOTE | 2020-01-23 10:40 | MM_ITS ---
PROCEDURE: MM DIG MAMM BI DX W/CAD Digital Breast Tomosynthesis Included CLINICAL INDICATION: SCREENING Lump right breast right breast lesions seen on recent CT scanning COMPARISON: No exams were available for comparison TECHNIQUE: Standard CC and MLO images and 3D Tomosynthesis was obtained. R2 CAD reviewed. FINDINGS: There is a large greater than golf ball size mass upper outer quadrant right breast with irregular borders and focal skin thickening and/or inward retraction of the skin surface outer quadrant. The mass measures 4 point 0 x 3.4 cm on the CC view. The breast is otherwise composed primarily of fat. Due to problems with positioning the axillary tail and axilla are not imaged right breast, there is slightly enlarged nodes left axilla. There are diffuse fibroglandular densities left breast with multiple scattered microcalcifications most of which appear to be typical of sclerosing adenosis. IMPRESSION: Large markedly suspicious mass upper outer quadrant right breast with skin thickening and inward retraction of the skin surface and this is carcinoma till proven otherwise BI-RAD Category: 5 Highly Suggestive Of Malignancy FOLLOW-UP: BIO Biopsy Recommended (A letter has been sent to the patient regarding results of the study.) Dictated by: Dr. Felipe Jones MD 01/28/2020 07:52 Dr. Felipe Jones MD in [facility] 01/28/2020 07:52
== END ==
PROVIDERS: PCP Internal Medicine Adolescent Medicine; Visit Provider Internal Medicine Medical Oncology
DX: N63.11 Unspecified lump in the right breast, upper outer quadrant (principal)
CPT/HCPCS: 77062; 77063; 77066; 77067; G0279

== ENCOUNTER → 2020-02-05 09:06 | Outpatient (CLI) | payer MEDICARE, MEDICAID, SELFPAY ==
--- NOTE | 2020-02-05 09:17 | US_ITS ---
PROCEDURE: US BREAST RT COMPLETE CLINICAL INDICATION: BREAST CANCER COMPARISON: MG MM DIG MAMM BI DX W/CAD from 01/23/2020 FINDINGS: There is a large hypoechoic mass with irregularity of the border at the palpable site 10 o'clock position mid breast measuring 3.6 by 4.3 x 2.7 cm. There is prominent acoustic shadowing deep to the mass and there is increased vascularity. IMPRESSION: Markedly suspicious ultrasound findings compatible with the mammogram findings and this must be considered carcinoma until proven otherwise Dictated by: Dr. Felipe Jones MD 02/08/2020 12:48 Dr. Felipe Jones MD in [facility] 02/08/2020 12:48
--- NOTE | 2020-02-05 09:20 | US_ITS ---
PROCEDURE: US BIOPSY GUIDANCE CLINICAL INDICATION: BREAST CA Right breast mass COMPARISON: US US BREAST RT COMPLETE from 02/05/2020 FINDINGS: Following obtaining informed consent time-out procedure under aseptic conditions and local anesthesia with 1 percent buffered lidocaine, fine needle aspiration was performed with 21 gauge needle into the 10 o'clock right breast mass. Core biopsy was also obtained x2 with 16 gauge core needle. FNA was also performed of a hypoechoic right axillary lymph node. This was performed with a 21 gauge needle with sonographic guidance. The patient tolerated the procedure well without evidence of immediate complication and left radiology suite in stable condition. Cytology: Lymph node FNA: Malignant cells consistent with metastatic adenocarcinoma Cytology: Right breast 10 o'clock: Malignant cells present consistent with ductal adenocarcinoma Pathology 10 o'clock right breast: Invasive ductal adenocarcinoma IMPRESSION: Ultrasound-guided right breast FNA and core biopsy and FNA of right axillary lymph node demonstrates invasive ductal adenocarcinoma with malignant cells present in the sampled right axillary lymph node Dictated by: Sameer Howe MD 02/07/2020 15:46 Sameer Howe MD in [facility] 02/07/2020 15:46
== END ==
PROVIDERS: PCP Internal Medicine Adolescent Medicine; Visit Provider Surgery
DX: R92.8 Other abnormal and inconclusive findings on diagnostic imaging of breast (principal); C50.911 Malignant neoplasm of unspecified site of right female breast
CPT/HCPCS: 19083; 76641; 76942; 88173; 88305; 88342; 88360

== ENCOUNTER 2020-02-12 12:46 | Inpatient (IN) | payer MEDICARE, MEDICAID, SELFPAY ==
[2020-02-12] VITALS (12 sets, daily range): BP systolic 93–121; BP diastolic 48–72; PULSE 80–101; RESP 14–20; TEMP 36.8–37.1; O2SAT 92–100; BMI 21.1; BMI 17.9
--- NOTE | 2020-02-12 13:06 | PC.NURSE ---
LABS SENT UP
--- NOTE | 2020-02-12 13:08 | XR_ITS ---
PROCEDURE: XR CHEST PORTABLE CLINICAL HISTORY: cough COMPARISON: CR [id number] XR chest portable from 02/01/[address] CHEST WO/W CON from 01/02/2020 FINDINGS: The cardiomediastinal silhouette and pulmonary vascularity are within normal limits except for mild aortic tortuosity. The lungs are clear without infiltrates, suspicious nodules, or pleural effusions. No acute bony abnormalities. IMPRESSION: No acute findings. Dictated by: Dr. Felipe Jones MD 02/12/2020 14:08 Dr. Felipe Jones MD in [facility] 02/12/2020 14:08
--- NOTE | 2020-02-12 13:15 | PC.NURSE ---
PORT CHEST BEING DONE
--- NOTE | 2020-02-12 13:17 | HMH.EDWEAK ---
ED Disposition Clinical Impression: Acute UTI, Acute kidney injury Failure to thrive Qualifiers: Failure to thrive age range: in adult Qualified Code(s): R62.7 - Adult failure to thrive Disposition: Admitted As Inpatient Condition on Discharge: Good Referrals: Adama Corado MD [Primary Care Provider] - - Critical Care Critical Care Time: No Attestation: On 02/12/20, the high probability of a clinically significant, sudden or life threatening deterioration of the following system(s) required my full and direct attention, intervention and personal management. The time I documented below is in addition to time spent performing reported procedures but includes the following listed in this critical care notation. Medical Decision Making - Medical Records Medical records reviewed: Yes: I reviewed the patient's medical records. - Jayro Inquiry Pt receiving controlled substance: No Vital Signs: 02/12/20 12:49 02/12/20 13:08 02/12/20 13:19 Temperature 98.3 F Temperature Source Oral Pulse Rate [Left] 92 H 98 H 92 H Respiratory Rate 18 17 18 Blood Pressure [Right Arm] 108/64 L 108/64 L 112/59 L Blood Pressure Mean [Right Arm] 78 78 76 Blood Pressure Source [Right Arm] Automatic Cuff Automatic Cuff Automatic Cuff Blood Pressure Position [Right Arm] Sitting Sitting 02 Sat by Pulse Oximetry 92 L 97 100 Oxygen Delivery Method Room Air Room Air Nasal Cannula Oxygen Flow Rate (LPM) 2 02/12/20 13:40 02/12/20 14:04 02/12/20 15:00 Temperature Temperature Source Pulse Rate [Left] 99 H 99 H 83 Respiratory Rate 20 Blood Pressure [Right Arm] 121/72 110/68 104/64 L Blood Pressure Mean [Right Arm] 88 82 77 Blood Pressure Source [Right Arm] Automatic Cuff Automatic Cuff Automatic Cuff Blood Pressure Position [Right Arm] Sitting Sitting Sitting 02 Sat by Pulse Oximetry 100 100 99 Oxygen Delivery Method Room Air Room Air Oxygen Flow Rate (LPM) - Lab Data Lab Results 02/12/20 13:00: WBC 8.9, RBC 4.64, Hgb 14.1, Hct 45.0, MCV 96.9, MCH 30.5, MCHC 31.4 L, RDW 15.2, Plt Count 266, MPV 7.9, Neut % (Auto) 70.0, Lymph % (Auto) 19.4, [place] % (Auto) 6.8, Eos % (Auto) 3.3, Baso % (Auto) 0.6, Neut # (Auto) 6.2, Lymph # (Auto) 1.7, [place] # (Auto) 0.6, Eos # (Auto) 0.3, Baso # (Auto) 0.1 02/12/20 13:00: Sodium 141, Potassium 3.9, Chloride 106, Carbon Dioxide 24, Anion Gap 14.9, BUN 24 H, Creatinine 1.10 H, Estimated Creat Clear 39, Estimated GFR 48 L, Est GFR ( Amer) 58 L, Glucose 84, Calcium 9.1, Total Bilirubin 0.6, AST 26, ALT 12, Alkaline Phosphatase 70, Troponin I < 0.01, NT-Pro-B Natriuret Pep 156, Total Protein 6.8, Albumin 3.9, Globulin 2.9, Albumin/Globulin Ratio 1.3, Lipase 25, TSH 0.85 02/12/20 13:00: SARS-CoV-2 IgG Ab (Rapid) Negative, SARS-CoV-2 IgM Ab (Rapid) Negative 02/12/20 14:13: Urine Color Yellow, Urine Appearance Sl cloudy, Urine pH 6.0, Ur Specific [place] 1.025, Urine Protein Negative, Urine Glucose (UA) Negative, Urine Ketones Trace, Urine Blood Negative, Urine Nitrate Negative, Urine Bilirubin 1+ A, Urine Urobilinogen 0.2, Ur Leukocyte Esterase 2+ A, Urine RBC Occasional, Urine WBC 10-20, Ur Squamous Epith Cells 3-5, Amorphous Sediment 1+, Urine Bacteria 2+ 02/12/20 14:25: PT 11.4, INR 1.03, APTT 25.8 02/12/20 14:25: Lactate 0.9 Result diagrams: 02/12/20 13:00 02/12/20 13:00 Orders (Tests/Meds): ED MEDICATIONS Generic Name Dose Route Start Last Admin Trade Name Freq PRN Reason Stop Dose Admin Ceftriaxone Sodium 1 gm/ 50 mls @ 100 mls/hr 02/12/20 15:30 02/12/20 15:24 Sodium Chloride IV 02/26/20 15:29 100 mls/hr Q24H ISRRAEL Administration Protocol ORDERS Category Date Time Status Troponin I Q3H Lab 02/12/20 16:15 Ordered Troponin I Q3H Lab 02/12/20 19:15 Ordered Urine Culture Stat Micro 02/12/20 14:13 Received Urine Culture Stat Micro 02/12/20 15:17 Ordered - Radiology Data #1 Image(s): Chest, Pelvis Image Reviewed: Yes I reviewed the patient
--- NOTE | 2020-02-12 13:19 | XR_ITS ---
PROCEDURE: XR PELVIS 1-2V CLINICAL INDICATION: pain COMPARISON: No exams were available for comparison TECHNIQUE: XR Pelvis AP View FINDINGS: No fracture or dislocation is evident. There is mild generalized osteopenia. There is disc space narrowing at the L5-S1 level. There is mild asymmetrical joint space narrowing of the right hip. No lytic or blastic change. IMPRESSION: [id number] osteoarthritic change right hip along with degenerate disc disease L5-S1, no acute fracture seen Dictated by: Dr. Felipe Jones MD 02/12/2020 14:10 Dr. Felipe Jones MD in [place] 02/12/2020 14:10
[2020-02-12 13:20] LABS: Chloride 106 mmol/L (98-107); Potassium 3.9 mmoL/L (3.5-5.1); Sodium 141 mmol/L (136-145)
[2020-02-12 13:23] LABS: Alanine Aminotransferase 12 U/L (12-78); Albumin Level 3.9 g/dl (3.5-5.0); Albumin/Globulin Ratio 1.3 (1.1-1.8); Alkaline Phosphatase 70 U/L (38-126); Anion Gap 14.9 mEq/L (5-15); Aspartate Amino Transferase 26 U/L (14-36); Bilirubin,Total 0.6 mg/dl (0.2-1.3); Blood Urea Nitrogen 24 mg/dl (7-17); Calcium 9.1 mg/dl (8.4-10.2); Carbon Dioxide 24 mmol/L (22.0-30.0); Creatinine Clearance Estimated 39 mL/min (50-200); Estimated Glomerular Filt Rate 48 ml/min (>60); GFR (African American) 58 ML/MIN (>60); Globulin 2.9 g/dL (1.3-3.2); Glucose 84 mg/dl (74-100); Lipase 25 U/L (23-300); Total Protein,Serum 6.8 g/dl (6.3-8.2)
[2020-02-12 13:26] LABS: Basophils # 0.1 K/mm3 (0-0.2); Basophils % 0.6 % (0.1-2.0); Eosinophils # 0.3 K/mm3 (0.0-0.4); Eosinophils % 3.3 % (0.1-12.0); Hemoglobin 14.1 g/dL (12.2-16.2); Lymphocytes # 1.7 K/mm3 (0.7-4.5); Lymphocytes % 19.4 % (10-50); Mean Corpuscular HGB Conc 31.4 g/dL (31.8-35.4); Mean Corpuscular Hemoglobin 30.5 pg (27.0-31.2); Mean Corpuscular Volume 96.9 fl (81-99); Mean Platelet Volume 7.9 fl (7.4-10.4); Monocytes # 0.6 K/mm3 (0.1-1.0); Monocytes % 6.8 % (1.7-9.3); Neutrophils # 6.2 K/mm3 (1.8-7.8); Platelet Count 266 K/mm3 (142-424); Red Blood Count 4.64 M/mm3 (4.20-5.40); Red Cell Distribution Width 15.2 % (11.5-17.5); White Blood Count 8.9 K/mm3 (4.8-10.8)
--- NOTE | 2020-02-12 13:26 | PC.NURSE ---
LAB CALLED TO DRAW LACTIC
[2020-02-12 13:33] LABS: NT Pro Brain Natriuretic Pep. 156 pg/mL (0-450)
[2020-02-12 13:36] LABS: Troponin I < 0.01 ng/ml (0.00-0.034)
--- NOTE | 2020-02-12 13:46 | ECG_ITS ---
APPROVED REPORT Exam: Resting ECG HR:96 bpm ECG Measurements Heart Rate 96 AXES AL 180 P -86 QRSd 68 QRS 85 QT 356 T -82 QTc 449 Conclusion Unusual P axis, possible ectopic atrial rhythm Low voltage QRS T wave abnormality, consider inferior ischemia Abnormal ECG Electronically signed by : Rolly Oneill, 02/13/2020 15:19:41
[2020-02-12 13:55] LABS: Thyroid Stimulating Hormone 0.85 uIU/mL (0.465-4.68)
--- NOTE | 2020-02-12 14:09 | CT_ITS ---
PROCEDURE: CT ABDOMEN PELVIS WO CON CLINICAL INDICATION: pain Abdominal pain and generalized weakness, recent diagnosis of breast cancer COMPARISON: CT CT ABDOMEN PELVIS WO/W CON from 01/02/2020 TECHNIQUE: Axial images obtained with sagittal and coronal reformats. All CT scans at the facility use one or more dose reduction, viz: automated exposure control, ma/kV adjustment per patient size (including targeted exams where dose is matched to indication, i.e. head), or iterative reconstruction technique. FINDINGS: Lower thorax: The lower lung rasheed are clear and there is no pleural fluid. ABDOMEN: Liver: No masses or biliary dilatation. Gallbladder: Patient is post cholecystectomy Pancreas: No masses or peripancreatic fluid collections. Spleen: unremarkable Adrenals: unremarkable Kidneys/ureters: The kidneys are normal in size and no calculi and there is no obstructive uropathy. ABDOMEN & PELVIS: Stomach bowel: There is a moderate-sized hiatal hernia. The stomach and small bowel appear grossly normal. The appendix is not definitely visualized but no pericecal inflammatory changes. The cecum is positioned low right side of the upper pelvis a normal variation. There is a large amount stool in the ascending colon and particularly hepatic flexure and proximal transverse colon. There is mild diffuse diverticulosis of the sigmoid colon but there is no diverticulitis. Peritoneum: No abnormal fluid collections. No obvious inflammatory changes. No free air. Lymph nodes: No enlarged lymph nodes apparent. Vasculature: There is scattered arteriosclerotic calcification of the abdominal aorta but there is no aneurysm. Bones: There is mild diffuse dextroscoliotic curvature of the lower thoracic and lumbar spine. Multilevel degenerate changes of the lumbar spine are seen. PELVIS: Reproductive: The uterus is normal size and slightly retroverted. Bladder: There is a Fu catheter at the base of the urinary bladder which is decompressed. There is no free fluid in the pelvis. Appendix: Not definitely identified but there are no findings to suggest appendicitis. IMPRESSION: Large amount right-sided stool without evidence of obstruction, no other significant abdominal or pelvic pathology identified Dictated by: Dr. Felipe Jones MD 02/12/2020 15:00 Dr. Felipe Jones MD in [place] 02/12/2020 15:00
[2020-02-12 14:17] LABS: Microscopic, Urine URINE MICROSCOPIC (MICROSCOPIC)
[2020-02-12 14:18] LABS: Appearance,Urine SL CLOUDY (Clear); Blood, Urine Negative (Negative); Color,Urine YELLOW (Yellow); Glucose,Urine (UA) Negative (Negative); Ketones,Urine TRACE (Negative); Leukocyte Esterase,Urine 2+ (Negative); Nitrate,Urine Negative (Negative); Protein,Urine Negative (Negative); Specific Gravity, Urine 1.025 (1.005-1.030); Urobilinogen,Urine 0.2 EU/dl (0.2)
[2020-02-12 14:20] LABS: Bilirubin,Urine 1+ (Negative)
--- NOTE | 2020-02-12 14:30 | PC.NURSE ---
Patient to radiology.
[2020-02-12 14:36] LABS: Coronavirus 19 IgG Antibody Negative (Negative); Coronavirus 19 IgM Antibody Negative (Negative)
--- NOTE | 2020-02-12 14:45 | PC.NURSE ---
Patient returned from radiology.
[2020-02-12 14:47] LABS: Lactic Acid 0.9 mmol/L (0.7-2.1)
[2020-02-12 15:00] LABS: Amorphous Sediment,Urine 1+ /lpf; Bacteria,Urine 2+ /lpf; RBC,Urine Occasional #/hpf (0-3)
[2020-02-12 15:10] LABS: Activated Partial Thrombo Time 25.8 seconds (23.6-34.0); INR 1.03 (0.9-1.1); Prothrombin Time 11.4 seconds (9.4-11.8)
--- NOTE | 2020-02-12 15:23 | PC.NURSE ---
Dr. Mak clemente.
--- NOTE | 2020-02-12 15:24 | PC.NURSE ---
Dr. Baez speaking with Dr. Corado at this time.
--- NOTE | 2020-02-12 15:36 | PC.NURSE ---
called house for bed
--- NOTE | 2020-02-12 15:46 | P.CONPHA_ITS ---
[facility] Pharmacy VTE Monitoring - Patient Demographics Admission date: 02/12/20 Report Date: 02/12/20 Time: 15:46 Allergies/Adverse Reactions: Patient Allergies Penicillins Allergy (Intermediate, Verified 02/12/20 13:17) swelling Height: 1.7 m Weight: 61.235 kg Patient Problems: Current Active Problems Acute UTI (Acute) Acute kidney injury (Acute) Failure to thrive (Acute) - VTE Risk Labs: VTE Related Lab Results Hgb 14.1 g/dL (12.2-16.2) 02/12/20 13:00 Hct 45.0 % (37.0-47.0) 02/12/20 13:00 Plt Count 266 K/mm3 (142-424) 02/12/20 13:00 PT 11.4 seconds (9.4-11.8) 02/12/20 14:25 INR 1.03 (0.9-1.1) 02/12/20 14:25 APTT 25.8 seconds (23.6-34.0) 02/12/20 14:25 BUN 24 mg/dl (7-17) H 02/12/20 13:00 Creatinine 1.10 mg/dl (0.52-1.04) H 02/12/20 13:00 Estimated Creat Clear 39 mL/min (50-200) 02/12/20 13:00 Clinical Trial Participant: No - Prophylaxis VTE Prophylaxis Ordered?: Yes Types of VTE Prophylaxis: TEDS Knee High
--- NOTE | 2020-02-12 17:29 | PC.NURSE ---
Patient received from ER. Patient is oriented to self, month, location and situation but unsure of year. Patient's niece Deja Flynn, who is listed as next of kin, was contacted and answered questions regarding her aunt. States that Aunt was diagnosed with breast cancer a couple of weeks ago and went home from that appointment and got into bed and stopped eating properly. She stopped feeding herself and providing care to her hygiene. Patient is currently in good spirits. Resting on room air, oxygen saturation in 90's. Bilateral clinical trial data manager are firm and equal. Skin is intact, mepelex applied to sacrum as prophylactic skin care. Patients bowel sounds are active. Fu catheter placed by paramedics. Urine output is clear and yellow. Patient has dentures and glasses, appears to be hard of hearing. Patient has an 18 gauge IV in her right ac with ns infusing at 100 ml/hr. Patient is completely dependent with mobility, however, niece states that this is a new development post cancer diagnosis. States that prior to this diagnosis patient would need help getting to her wheelchair but could maneuver wheelchair independently throughout her apartment.
--- NOTE | 2020-02-12 19:05 | PC.NURSE ---
report given to brenden
--- NOTE | 2020-02-12 20:12 | HMH.HP ---
*Admission Date: 02/12/20 *Chief complaint: falling, confusion, weakness *History of present illness: Ms. Wallace is an 79-year-old female with multiple comorbidities including dependence on caregiver, recurrent rectal prolapse, hypertension, mild MR, and recent diagnosis of breast cancer. She was brought in by her caregiver due to progressive weakness and falls. She reportedly had worsening confusion as well. Initial work-up showed concern for UTI and acute kidney injury. Caregiver recently had a fall and broke his foot which makes it very difficult for him to care for her and her worsening state. Medicine was consulted for admission given patient's clinical decline, and acute issues. She was admitted for further management. Assessment after arriving to the floor, she states that she has been more sad since her diagnosis of breast cancer, having poor p.o. intake. Denies any fevers, nausea or vomiting. Denies any shortness of breath or chest pain. Does admit to significant weight loss, feeling more weak. Having more falls at home. Has become significantly more dependent upon her caregiver for previously independent activities. [facility] History I have reviewed the patient's past medical history: Yes Medical History: Reports:: Aneurysm, Hypertension Denies:: Cancer, Diabetes Mellitus Type 1, Diabetes Mellitus Type 2, Internal Pacemaker, Lung Disease, MRSA, Seizures *Have you ever received a pneumonia vaccine?: No *Have you received a flu vaccine this season?: No Other Medical History: Reports: Arthritis, Cataracts. Denies: Blood Transfusion Reaction Other Surgeries: Yes: Appendectomy, Cholecystectomy, Colonoscopy, Other (lap clint). No: Pacemaker Amputation: No Fractures: No - *Social History Last grade of school completed: 4th or less Smoking Status: Never smoker Alcohol Intake: never *Occupational Status:: retired Housing: apartment Household Members: friend(s) *Travel in the last 8 weeks: None Family Hx:: Hypertension Review of Systems - Review of Systems Review of systems:: pertinent systems reviewed and negative unless documented below (14 point review of systems performed, pertinent positives and negatives as per HPI) - *Neurologic Reports weakness, Denies headache(s) Meds Home Medications Medication Instructions Recorded Confirmed Type NIFEdipine [Nifedipine ER] 30 mg PO DAILY 05/30/17 02/12/20 History Oxybutynin Chloride [Ditropan 5mg 5 mg PO HS 05/30/17 02/12/20 History tablet] Simvastatin [Zocor 20mg] 20 mg PO HS 05/30/17 02/12/20 History Albuterol Sulfate [Ventolin HFA 1 - 2 puffs INHALATION TIDP PRN 02/02/18 02/12/20 History Inhaler] hydrocortisone 2.5 % topical 1 applic TOPICAL BID PRN 01/17/20 02/12/20 History solution triamcinolone acetonide 0.5 % 1 applic TOPICAL BID 01/17/20 02/12/20 History topical cream Furosemide [Furosemide 20mg Tab*] 20 mg PO DAILY PRN 02/12/20 02/12/20 History Allergies Allergy/AdvReac Type Severity Reaction Status Date / Time Penicillins Allergy Intermediate swelling Verified 02/12/20 13:17 Exam Vital signs and Labs for Last 24 Hours: Temp Pulse Resp BP Pulse Ox 98.3 F 95 H 18 103/61 L 92 L 02/12/20 16:55 02/12/20 16:55 02/12/20 16:55 02/12/20 16:55 02/12/20 16:55 Laboratory Results - last 24 hr 02/12/20 13:00: WBC 8.9, RBC 4.64, Hgb 14.1, Hct 45.0, MCV 96.9, MCH 30.5, MCHC 31.4 L, RDW 15.2, Plt Count 266, MPV 7.9, Neut % (Auto) 70.0, Lymph % (Auto) 19.4, [place] % (Auto) 6.8, Eos % (Auto) 3.3, Baso % (Auto) 0.6, Neut # (Auto) 6.2, Lymph # (Auto) 1.7, [place] # (Auto) 0.6, Eos # (Auto) 0.3, Baso # (Auto) 0.1 02/12/20 13:00: Sodium 141, Potassium 3.9, Chloride 106, Carbon Dioxide 24, Anion Gap 14.9, BUN 24 H, Creatinine 1.10 H, Estimated Creat Clear 39, Estimated GFR 48 L, Est GFR ( Amer) 58 L, Glucose 84, Calcium 9.1, Total Bilirubin 0.6, AST 26, ALT 12, Alkaline Phosphatase 70, Troponin I < 0.01, NT-Pro-B Natriuret Pep 156, Total Pro
[2020-02-13] VITALS: PULSE 78
[2020-02-13 04:00] VITALS: BP 82/42; PULSE 62; PULSE 67; RESP 17; TEMP 36.9; O2SAT 96
--- NOTE | 2020-02-13 04:39 | PC.NURSE ---
Pt denies soa/nausea. Pt complains of pain in bilateral upper extremities, with worse pain in her hands. Tylenol has been administered twice with some relief. Heated blankets applied to arms in an effort to help with pain. Q2H turning continues. Lung sounds are clear, but diminished. Fu in place, urine appears yellow with sediment.
[2020-02-13 05:06] VITALS: BMI 17.9
[2020-02-13 06:39] LABS: Basophils % 0.6 % (0.1-2.0); Eosinophils # 0.5 K/mm3 (0.0-0.4); Eosinophils % 7.8 % (0.1-12.0); Hematocrit 36.5 % (37.0-47.0); Lymphocytes # 1.7 K/mm3 (0.7-4.5); Lymphocytes % 23.7 % (10-50); Mean Corpuscular Hemoglobin 29.5 pg (27.0-31.2); Mean Corpuscular Volume 98.4 fl (81-99); Mean Platelet Volume 7.7 fl (7.4-10.4); Monocytes # 0.5 K/mm3 (0.1-1.0); Monocytes % 7.1 % (1.7-9.3); Neutrophils # 4.2 K/mm3 (1.8-7.8); Neutrophils % 60.8 % (37.0-80.0); Platelet Count 210 K/mm3 (142-424); Red Blood Count 3.72 M/mm3 (4.20-5.40); Red Cell Distribution Width 14.8 % (11.5-17.5)
[2020-02-13 06:50] LABS: Chloride 106 mmol/L (98-107)
[2020-02-13 06:51] LABS: Potassium 3.8 mmoL/L (3.5-5.1); Sodium 137 mmol/L (136-145)
[2020-02-13 06:53] LABS: Blood Urea Nitrogen 19 mg/dl (7-17); Creatinine Clearance Estimated 35 mL/min (50-200); Estimated Glomerular Filt Rate 80 ml/min (>60); GFR (African American) 97 ML/MIN (>60)
[2020-02-13 06:54] LABS: Anion Gap 9.8 mEq/L (5-15); Calcium 8.3 mg/dl (8.4-10.2); Carbon Dioxide 25 mmol/L (22.0-30.0); Glucose 89 mg/dl (74-100)
--- NOTE | 2020-02-13 07:10 | PC.NURSE ---
shift summary patient rested well throughout shift. remains on 2 l nc. breath sounds auscultate expiratory wheezes this am. sats remain greater than 93%. ambulates to retroom with standby assist.
[2020-02-13 08:00] VITALS: BP 89/47; PULSE 68; PULSE 70; RESP 18; TEMP 36.4; O2SAT 94
--- NOTE | 2020-02-13 08:15 | HMH.ACPN2 ---
Internal Medicine - PN: Subj *Date: 02/13/20 *Time: 08:15 Interval history: Patient has some vague complaints, given her cognitive impairment it is difficult to ascertain specific issues. Exam Vital signs and Labs for Last 24 Hours: Temp Pulse Resp BP Pulse Ox 97.6 F 68 18 89/47 L 94 L 02/13/20 08:00 02/13/20 08:00 02/13/20 08:00 02/13/20 08:00 02/13/20 08:00 Laboratory Results - last 24 hr 02/12/20 13:00: WBC 8.9, RBC 4.64, Hgb 14.1, Hct 45.0, MCV 96.9, MCH 30.5, MCHC 31.4 L, RDW 15.2, Plt Count 266, MPV 7.9, Neut % (Auto) 70.0, Lymph % (Auto) 19.4, [place] % (Auto) 6.8, Eos % (Auto) 3.3, Baso % (Auto) 0.6, Neut # (Auto) 6.2, Lymph # (Auto) 1.7, [place] # (Auto) 0.6, Eos # (Auto) 0.3, Baso # (Auto) 0.1 02/12/20 13:00: Sodium 141, Potassium 3.9, Chloride 106, Carbon Dioxide 24, Anion Gap 14.9, BUN 24 H, Creatinine 1.10 H, Estimated Creat Clear 39, Estimated GFR 48 L, Est GFR ( Amer) 58 L, Glucose 84, Calcium 9.1, Total Bilirubin 0.6, AST 26, ALT 12, Alkaline Phosphatase 70, Troponin I < 0.01, NT-Pro-B Natriuret Pep 156, Total Protein 6.8, Albumin 3.9, Globulin 2.9, Albumin/Globulin Ratio 1.3, Lipase 25, TSH 0.85 02/12/20 13:00: SARS-CoV-2 IgG Ab (Rapid) Negative, SARS-CoV-2 IgM Ab (Rapid) Negative 02/12/20 14:13: Urine Color Yellow, Urine Appearance Sl cloudy, Urine pH 6.0, Ur Specific [place] 1.025, Urine Protein Negative, Urine Glucose (UA) Negative, Urine Ketones Trace, Urine Blood Negative, Urine Nitrate Negative, Urine Bilirubin 1+ A, Urine Urobilinogen 0.2, Ur Leukocyte Esterase 2+ A, Urine RBC Occasional, Urine WBC 10-20, Ur Squamous Epith Cells 3-5, Amorphous Sediment 1+, Urine Bacteria 2+ 02/12/20 14:25: PT 11.4, INR 1.03, APTT 25.8 02/12/20 14:25: Lactate 0.9 02/13/20 06:20: WBC 7.0, RBC 3.72 L, Hgb 11.0 L D, Hct 36.5 L, MCV 98.4, MCH 29.5, MCHC 30.0 L, RDW 14.8, Plt Count 210, MPV 7.7, Neut % (Auto) 60.8, Lymph % (Auto) 23.7, [place] % (Auto) 7.1, Eos % (Auto) 7.8, Baso % (Auto) 0.6, Neut # (Auto) 4.2, Lymph # (Auto) 1.7, [place] # (Auto) 0.5, Eos # (Auto) 0.5 H, Baso # (Auto) 0.0 02/13/20 06:20: Sodium 137, Potassium 3.8, Chloride 106, Carbon Dioxide 25, Anion Gap 9.8, BUN 19 H, Creatinine 0.70 D, Estimated Creat Clear 35, Estimated GFR 80, Est GFR ( Amer) 97 D, Glucose 89, Calcium 8.3 L I & O for Last 24 hours: Intake & Output 02/10/20 02/11/20 02/12/20 02/13/20 11:59 11:59 11:59 11:59 Intake Total 9 / 2229 Balance 222 / 222 Weight 111 lb 2 oz Microbiology Reports for the Last 24 Hours: Microbiology 02/12/20 14:13 Urine,Clean Catch Urine Culture - Preliminary Gram Negative Rods Narrative: Patient is pleasant, talkative, lungs clear. Heart rate regular. Patient ate well with nursing assistance. No change in chest wall exam. Abdomen scaphoid but soft. No pedal edema or clubbing. Good distal perfusion. Patient is not oriented to place or time. Assessment and Plan (1) Acute UTI Status: Acute Category: Medical Code(s): N39.0 - Urinary tract infection, site not specified (2) Acute kidney injury Status: Acute Category: Medical Code(s): N17.9 - Acute kidney failure, unspecified (3) Failure to thrive Status: Acute Qualifiers: Failure to thrive age range: in adult Qualified Code(s): R62.7 - Adult failure to thrive Category: Medical (4) Breast mass, right Status: Acute Category: Medical Code(s): N63.10 - Unspecified lump in the right breast, unspecified quadrant (5) Depression Status: Acute Qualifiers: Depression Type: reactive depression Qualified Code(s): F32.9 - Major depressive disorder, single episode, unspecified Category: Medical Code(s): F32.9 - Major depressive disorder, single episode, unspecified - Assessment and plan all Dx Assessment and Plan for all problems:: Await cultures on UTI. Acute kidney injury improving with fluids. Patient's big issue is funct
--- NOTE | 2020-02-13 08:50 | HMH.PTEV ---
Physical Therapy Evaluation Rehab PT IP Evaluation Start: 02/12/20 20:28 Freq: ONCE Status: Active Protocol: Document 02/13/20 08:43 PWKANIKA (Rec: 02/13/20 08:50 PWKANIKA [id number]) Subjective/History History History Ms. Wallace is an 79-year-old female with multiple comorbidities including dependence on caregiver, recurrent rectal prolapse, hypertension, mild MR, and recent diagnosis of breast cancer. She was brought in by her caregiver due to progressive weakness and falls . She reportedly had worsening confusion as well. Initial work-up showed concern for UTI and acute kidney injury. Subjective Subjective Pt is alert to paerson, birthday, and place. Pt c/o pain, moans in pain w/ any movment either actively or passively of any body part but R>L side. Pt reports she has caregiver at home who recently fell and hurt his foot. Pt reprots she has fallen several times at home recently. Pt reprots she does not walk and uses a wheelchair. Pt reports she has not walked in a long time Rehab PT IP Eval Objective Appearance Patient Behavior Guarded,Fearful Patient Orientation Place,Name,Birthday Difficulty following instructions mild Speech Pattern Slurred,Mumbled Ambulation Patient Able to Ambulate No Balance Ability to Arise Unable Sitting Balance Leans or slides in chair Dynamic Sitting Balance Ability Zero Transfers Bed Transfer Ability Maximum x 1 (75% assist) Rehab PT IP prob,goals,plan Problems Date of Evaluation: 02/13/20 PT IP Problems Bed Mobility,Transfers,Gait, Balance,Self care,Safety Rehab Potential Rehab Potential Poor Equipment Needs Assistive Devices Wheelchair Plan PT Intervention Plan Bed Mobility,Transfers,Balance ,Therapeutic Exercise PT Plan Frequency BID Duration
--- NOTE | 2020-02-13 11:05 | HMH.SLDYSPHA ---
Speech & Language Evaluation Speech/Language Dysphagia Evaluation Start: 02/13/20 10:51 Freq: ONCE Status: Active Protocol: Document 02/13/20 10:51 FREDDIE (Rec: 02/13/20 11:05 FREDDIE [id number]) Dysphagia Assess/Goals/Plan Assessment Date of Evaluation: 02/13/20 Evaluation Type Initial Certification Assessment/Problems Dysphagia Does Patient Qualify for Service No Qualify/Failure Comment Patient showed no signs of dysphagia during the evaluation. Recommendations PHYSICIAN CERTIFICATION: The specified therapy services are required, authorized, and reviewed every 30 days. Diet Recommendations Normal Liquid Type Recommendations Normal/Thin SL Swallow Guidelines Standard Aspiration Prec. Dysphagia Swallow Precautions/Strategies Sitting Upright (90 deg),Small Bites and Sips,Alternate Liquids/Solids Plan Pt/Guardian verbally ack understanding Yes: RN notified of dx/prognosis/goals G -code Required No Speech & Language HPI Language Primary Language Chinese General Information General Current Food Consistancy Regular,Thin Liquids Dentition Upper & Lower Dentures Oxygen Status Room Air Facial Symmetry Symmetrical Patient Orientation Person Dysphagia:Food Presentation Evaluation Food Type Pureed,Mechanical Soft,Liquid, Pudding Dysphagia Evaluation Summary Ms. Wallace was given the following consistencies: thins via straw and open cup, pudding, pureed, mechanical soft, and regular, and pill with thin wash. No signs of dysphagia noted. At this time, current diet is recommended. Stroke Dysphagia Assessment PHYSICIAN CERTIFICATION: I certify the specified therapy services for Queenie Wallace are required, authorized, and reviewed every 30 days.
--- NOTE | 2020-02-13 12:52 | PC.NURSE ---
CALLED DR MORALES TO SEE IF PT COULD HAVE SOMETHING ELSE FOR PAIN. SHE DOESN'T HAVE TYLENOL DUE FOR 2 HOURS. HE SAID TO GIVE IBUPROFEN 600MG Q 6 HOURS PRN. ORDER FAXED TO PHARMACY.
[2020-02-13 13:42] VITALS: BMI 17.6
--- NOTE | 2020-02-13 14:25 | DIET.NUTRFU ---
Nutrition consult completed, pt is severely malnourished, has lost 10% body weight in past month. Protein supplements QID added to diet order. Pt requires total feeding assistance, cueing and encouragement efforts appreciated. Counseling to be in progress t/o stay as pt's mentation improves and given to grinder operator.
[2020-02-13 16:00] VITALS: BP 98/68; PULSE 62; RESP 18; TEMP 36.7; O2SAT 95
--- NOTE | 2020-02-13 16:29 | PC.NURSE ---
A&O TO NAME, BIRTHDAY, AND PLACE. PT IS TOLERATING ROOM AIR WELL. RESPIRATIONS REGULAR AND UNLABORED. LUNG SOUNDS BILATERALLY CLEAR. NO COUGH NOTED. +2 PULSES NOTED THROUGHOUT. TEDS ON. NO EDEMA NOTED. ACTIVE BOWEL SOUNDS HEARD IN ALL 4 QUADRANTS. SOFT AND NONTENDER ABDOMEN. NO BM THUS FAR. EASON CATHETER IN PLACE WITH BRIGHT YELLOW URINE NOTED. NO KINKS NOTED. PT HAS BEEN TURNED Q2 HOURS TO PREVENT SKIN BREAKDOWN. PT IS CURRENTLY RECEIVING ROCEPHIN AND TOLERATING WELL. PT HAS REPORTED PAIN SEVERAL TIMES THIS SHIFT AND HAS RECEIVED TYLENOL AND IBUPROFEN NEEDED PER JUN. SHE STATES SHE HAS A LOT OF ARTHRITIC PAIN IN HER HANDS. PT IS CURRENTLY LYING IN BED RESTING. CALL LIGHT WITHIN REACH. BED IN LOWEST POSITION. VSS. WILL CONTINUE TO MONITOR.
--- NOTE | 2020-02-13 19:05 | PC.NURSE ---
report given to cheryle
[2020-02-13 19:54] VITALS: BP 111/54; PULSE 63; RESP 17; TEMP 36.4; O2SAT 94
[2020-02-13 20:00] VITALS: O2SAT 96
[2020-02-14 04:00] VITALS: BP 91/53; PULSE 66; RESP 17; TEMP 37; O2SAT 95
--- NOTE | 2020-02-14 04:21 | PC.NURSE ---
Pt is alert to self, place, and month but not year. Pt has complained of generalized pain x3 this shift. PRN meds administered per MAR. Lung sounds remain clear. Bowel sounds in all 4 quads. Fu catheter remains patent and is draining clear, bright yellow urine per gravity. Pt continues to tolerate RA appropriately. Pt has been turned q2h and when needed this shift. Pt has also been encouraged to participate in ADL's such as feeding herself and drinking from her cup independently this shift. When encouraged pt becomes frustrated and says I can't do it, it's too hard . No other complaints or acute changes at this time. Will continue to monitor.
[2020-02-14 05:02] VITALS: BMI 19.0
--- NOTE | 2020-02-14 07:45 | SW/DCPLANNER ---
HAVE HAD MULTIPLE CONVERSATIONS WITH IMANI GREEN AND SHE HAS AGREED TO HAVE HER AUNT A HOSPICE PATIENT AND PATIENT HAS BEEN ACCEPTED TO [facility] AND WILL DISCHARGE THERE TODAY... DR MORALES SPOKE WITH ELINA TODAY AND SHE WAS MADE A DNR... PATIENT WILL DISCHARGE THIS AM AND A HOSPICE CONSULT WILL BE CALLED IN TO SEE PATIENT AT THE PRISON..
[2020-02-14 08:00] VITALS: BP 125/59; PULSE 68; RESP 16; TEMP 36.6; O2SAT 94
--- NOTE | 2020-02-14 08:14 | HMH.DCSUM ---
General - General Admission date:: 02/12/20 Discharge date: 02/14/20 HPI HPI: Ms. Wallace is an 79-year-old female with multiple comorbidities including dependence on caregiver, recurrent rectal prolapse, hypertension, mild MR, and recent diagnosis of breast cancer. She was brought in by her caregiver due to progressive weakness and falls. She reportedly had worsening confusion as well. Initial work-up showed concern for UTI and acute kidney injury. Caregiver recently had a fall and broke his foot which makes it very difficult for him to care for her and her worsening state. Medicine was consulted for admission given patient's clinical decline, and acute issues. She was admitted for further management. Assessment after arriving to the floor, she states that she has been more sad since her diagnosis of breast cancer, having poor p.o. intake. Denies any fevers, nausea or vomiting. Denies any shortness of breath or chest pain. Does admit to significant weight loss, feeling more weak. Having more falls at home. Has become significantly more dependent upon her caregiver for previously independent activities. Hospital Course Hospital Course: Patient was admitted, diagnosed with UTI and acute kidney injury, UTI was Klebsiella, pansensitive, responded very nicely to ceftriaxone and acute kidney injury resolved. In reviewing her case with her adenocarcinoma breast mass it was determined she would not be a candidate for ongoing hematology/oncology work-up, and would not tolerate aggressive surgical resection or radiation therapy. We discussed the case with her niece who is her power of assistant prosecuting attorney and healthcare surrogate, she agrees, will transition into palliative care mode and initiate hospice referral. Patient's functional decline mandates that she is no longer able to return to her previous home and she will be transferred to the [facility] today. Medications are listed in the reconciliation form as noted below. Please note she maintains a DNR status and we will continue to respect this at the [facility]. Objective Vital signs: Temp Pulse Resp BP Pulse Ox 98.6 F 66 17 91/53 L 95 02/14/20 04:00 02/14/20 04:00 02/14/20 04:00 02/14/20 04:00 02/14/20 04:00 no acute distress - *Routine HEENT Exam Head: Present: normocephalic Eye: Present: EOMI, PERRL ENT: Present: mucous membranes moist - *Routine Neck Exam Present: supple - Routine Chest/Breast/Axilla Exam Chest wall: Present: mass Breast: Present: tenderness Comments: Chest deformity as previously noted - *Routine Respiratory Exam Present: CTA bilaterally - *Routine Cardiovascular Exam Present: RRR - *Routine Abdominal Exam Present: soft, normoactive bowel sounds. Absent: tenderness - *Routine Extremities Exam Absent: cyanosis, clubbing, edema - *Routine Skin Exam Present: warm. Absent: rash - Detailed Eye Exam Eyelids: Bilateral normal inspection DS: Diagnosis - Discharge Diagnosis (1) Acute UTI Status: Acute Problem details: Culture with Klebsiella, pansensitive, continue oral antibiotics at [facility]. (2) Acute kidney injury Status: Resolved Problem details: Resolved. No changes in plan (3) Failure to thrive Status: Chronic Problem details: Agree with hospice referral. Patient has significant breast cancer, not candidate for surgery and/or radiation and/or chemotherapy at this point. (4) Breast mass, right Status: Acute (5) Depression Status: Chronic Discharge Plan - Patient Discharge Instructions ACTIVITY: Continue current activity DIET: continue same diet Patient Instructions: Urinary Tract Infection, [id number]-Adults, DI for Acute Kidney Injury - Follow up Plan Follow up with: Nereida Molina APRN [Nurse Practitioner] - Disposition: er [facility] Home Medications: Home Medications Medication Instructions Recorded Confirmed Type NI
[2020-02-14 08:35] VITALS: O2SAT 94
--- NOTE | 2020-02-14 10:36 | PC.NURSE ---
Called report to Magaly at [facility].
--- NOTE | 2020-02-14 11:30 | PC.NURSE ---
A&O TO NAME, BIRTHDAY, AND PLACE. PT HAS TOLERATED 2L NC WELL THROUGHOUT SHIFT. RESPIRATIONS REGULAR AND UNLABORED. LUNG SOUNDS BILATERALLY CLEAR. NO COUGH NOTED. NO EDEMA NOTED. ACTIVE BOWEL SOUNDS HEARD IN ALL 4 QUADRANTS. SOFT AND NONTENDER ABDOMEN. NO BM THUS FAR. EASON CATHETER WAS REMOVED AND PT TOLERATED WELL. CLEAR BRIGHT YELLOW URINE NOTED. PT REPORTED PAIN ONCE AND RECEIVED TYLENOL. PT WAS TURNED Q2 HOURS TO PREVENT SKIN BREAKDOWN. REPORT WAS CALLED TO PIO AT [email or web address]. ALL INFO FAXED OVER. AWAITING [facility] TO PICK PT UP. PT IS SITTING UP IN BED. BED IN LOWEST POSITION. CALL LIGHT WITHIN REACH. VSS. WILL CONTINUE TO MONITOR. ALL DISCHARGE INSTRUCTIONS GIVEN TO PIO. SHE VERBALIZED UNDERSTANDING. NO FURTHER QUESTIONS FROM HER.
== END 2020-02-14 11:37 | DRG 689 ==
LOC: ER 15:41 → 2ND 02-13 06:07
PROVIDERS: Admitting Provider Internal Medicine Adolescent Medicine; Emergency Provider Emergency Medicine; PCP Internal Medicine Adolescent Medicine; Visit Provider Internal Medicine Adolescent Medicine
DX: N39.0 Urinary tract infection, site not specified (principal); E43 Unspecified severe protein-calorie malnutrition; Z68.1 Body mass index [BMI] 19.9 or less, adult; C50.511 Malignant neoplasm of lower-outer quadrant of right female breast; Z91.81 History of falling; R62.7 Adult failure to thrive; F32.9 Major depressive disorder, single episode, unspecified; I10 Essential (primary) hypertension; Z79.899 Other long term (current) drug therapy; Z79.891 Long term (current) use of opiate analgesic; Z79.51 Long term (current) use of inhaled steroids
CPT/HCPCS: 71045; 72170; 74176; 80048; 80053; 81001; 83605; 83690; 83880; 84443; 84484; 85025; 85610; 85730; 86328; 87086; 87088; 87186; 92610; 93005; 96374; 97162; 99284